=== PATIENT | male | born 1940 | race African-American/Black ===

== ENCOUNTER 2018-05-19 14:20 | Observation (INO) ==
--- NOTE | 2018-05-19 15:26 | ED ---
HPI General Chief Complaint: Altered Mental Status Stated Complaint: Medical Complaint Time Seen by Provider: 05/19/18 14:52 Source: patient and EMS Mode of arrival: EMS Limitations: altered mental status History of Present Illness HPI narrative: This patient is brought in by paramedics. He was brought here for evaluation of altered mental status. Patient is fairly confused and history is very limited. I am unclear on how long he has had this so duration is unknown. Severity is moderate. No alleviating factors. No exacerbating factors. He arrived hypertensive at 200/100 and came down to the 170s systolic on his own. Sugars 330, he is a diabetic. Denies fever or head injury or headache. Related Data Home Medications Medication Instructions Recorded Confirmed Unable to Obtain Home Meds 05/19/18 05/19/18 Allergies Allergy/AdvReac Type Severity Reaction Status Date / Time No Known Allergies Allergy Unverified 05/19/18 14:49 Review of Systems Except as stated in HPI: all other systems reviewed are negative [facility] [place] Medical History Medical History Diabetes (Acute) HTN (hypertension) (Acute) Surgical History Surgical History History of hip surgery (Acute) Social History Social History Substance History: No History of Abuse Second Hand Smoke Exposure: No Smoking Status: Never smoker How Often Do You Have a Drink Containing Alcohol: Never Recent Travel in [place] within the Last 8 Weeks: No Recent Out of Country Travel within the Last 8 Weeks: No Immunization History Tetanus Immunization: Unable to Assess Hx Influenza Vaccine This Season: Unable to Assess Exam Narrative Exam Narrative: GENERAL: Well-nourished, well-developed patient in no apparent distress. SKIN: Focused skin assessment reveals no rash and nodules. Skin is Warm and dry. HEAD: Atraumatic. Normocephalic. EYES: Pupils equal and round. No scleral icterus. No injection or drainage. ENT: No nasal bleeding or discharge. Mucous membranes pink and moist. NECK: Trachea midline. No JVD. No meningeal signs CARDIOVASCULAR: Regular rate and rhythm. No murmur appreciated. RESPIRATORY: No accessory muscle use. Clear to auscultation. Breath sounds equal bilaterally. GASTROINTESTINAL: Abdomen soft, non-tender, nondistended. Hepatic and splenic margins not palpable. MUSCULOSKELETAL: No obvious deformities. No clubbing. No cyanosis. No edema. NEUROLOGICAL: Awake and alert. No obvious cranial nerve deficits. Motor grossly within normal limits. Normal speech. PSYCHIATRIC: Appropriate mood and affect; insight and judgment poor. Course Initial Documented Vital Signs Temperature 98.3 F 05/19/18 14:49 Pulse Rate 83 05/19/18 14:49 Respiratory Rate 18 05/19/18 14:49 Blood Pressure 179/90 H 05/19/18 14:49 Pulse Oximetry 99 05/19/18 14:49 Last Documented Vital Signs Temperature 98.3 F 05/19/18 23:07 Pulse Rate 42 L 05/20/18 00:00 Respiratory Rate 16 05/19/18 23:07 Blood Pressure 180/90 H 05/19/18 23:07 Pulse Oximetry 98 05/20/18 00:00 Sign Out Sign Out Data: Patient Sign Out occurred on 05/19/18 at 17:09. Patient's care was discussed, and care was transferred from Andry David MD to Judah Garcia MD. Sign Out Comment: This case is checked out to the evening physician. Lab studies are all pending. Last updated by Andry David MD at 05/19/18 16:52 Post-Handoff Eval: Patient CARE assume from Dr. Jett at 1700, this is 78-year-old male with unclear past medical history presents emergency department for altered mental status. Per him the patient's niece whom he lives with was taken away on a [employer] act to [employer] act, the patient confused wandered to his neighbor 's house and neighbor called [phone] stating he was not acting normal. No further collateral history is available at this time, I have attempted to call his niece at home and became apparent to me that his niece is actually under the care of my nurse practitioner because she is here in the emergency department for evaluation as well. I have been able to speak with her and she is unable to provide any collateral history on this patient. Patient's 3 item recall is only one at 1 minute. He has no physical complaints, blood sugar was elevated, so his blood pressure. Review of his records so that he was here in January for diagnosis of ductal carcinoma. Unclear as to whether he is still taking his immune modulating therapy. Last time he was seen in the emergency department with several years ago. No history of dementia on the chart, initial workup otherwise negative. Medical Decision Making MDM Narrative Medical decision making narrative: IV placed and labs sent. Accu-Chek is 330 and I gave him 1 L saline IV regular insulin No acute neurologic deficit or meningeal signs Urinalysis Brain CT Differential Diagnosis Differential Diagnosis: Hypoglycemia, hyperglycemia, hypertensive urgency, UTI, dementia, delirium, hypertensive urgency, hyperglycemia. Medical Records Medical records reviewed: Yes I reviewed the patient's medical records. Lab Data Result diagrams: 05/19/18 14:45 05/19/18 18:35 Lab Results 05/19/18 05/19/18 05/19/18 Range/Units 14:45 14:45 16:27 WBC 9.0 (4.0-11.0) th/mm3 RBC 3.93 L (4.50-5.90) mil/mm3 Hgb 11.6 L (13.0-17.0) gm/dL Hct 36.1 L (39.0-51.0) % MCV 91.7 (80.0-100.0) fL MCH 29.4 (27.0-34.0) pg MCHC 32.1 (32.0-36.0) % RDW 18.0 H (11.6-17.2) % Plt Count 181 (150-450) th/mm3 MPV 7.9 (7.0-11.0) fL Neut % (Auto) 76.2 H (16.0-70.0) % Lymph % (Auto) 16.2 (9.0-44.0) % Hill % (Auto) 6.2 (0.0-8.0) % Eos % (Auto) 1.0 (0.0-4.0) % Baso % (Auto) 0.4 (0.0-2.0) % Neut # (Auto) 6.8 (1.8-7.7) th/mm3 Lymph # (Auto) 1.5 (1.0-4.8) th/mm3 Hill # (Auto) 0.6 (0.0-0.9) th/mm3 Eos # (Auto) 0.1 (0.0-0.4) th/mm3 Baso # (Auto) 0.0 (0.0-0.2) th/mm3 WBC Differential . Differential Comment Auto diff final Sodium (136-145) meq/L Potassium (3.5-5.1) meq/L Chloride (98-107) meq/L Carbon Dioxide (21.0-32.0) meq/L Anion Gap (5-15) meq/L BUN (7-18) mg/dL Creatinine (0.60-1.30) mg/dL Estimated GFR (>89) mL/min Random Glucose (74-106) mg/dL Calcium (8.5-10.1) mg/dL Total Bilirubin (0.2-1.0) mg/dL AST (15-37) U/L ALT (12-78) U/L Alkaline Phosphatase (45-117) U/L Total Protein (6.4-8.2) g/dL Albumin (3.4-5.0) g/dL TSH 1.620 (0.358-3.740) uIU/mL Urine Color Yellow (Yellw/Straw) Urine Clarity Hazy H (Clear) Urine pH 5.0 (5.0-8.5) Ur Specific [place] 1.014 (1.002-1.035) Urine Protein 500 or greater (Neg-Trace) mg/dL Urine Glucose (UA) 50 (Negative) mg/dL Urine Ketones Negative (Negative) mg/dL Urine Occult Blood Small H (Negative) Urine Nitrate Negative (Negative) Urine Bilirubin Negative (Negative) Urine Urobilinogen Less than 2 (Less than 2) mg/dL Ur Leukocyte Esterase Negative (Negative) Urine RBC 4 H (0-3) /hpf Urine WBC 1 (0-5) /hpf Hyaline Casts 4 (0-3) /lpf Urine Mucus Few H (Occasional) /lpf Micro UA Comment Culture not ind Urine Culture Comments Culture not ind 05/19/18 Range/Units 18:35 WBC (4.0-11.0) th/mm3 RBC (4.50-5.90) mil/mm3 Hgb (13.0-17.0) gm/dL Hct (39.0-51.0) % MCV (80.0-100.0) fL MCH (27.0-34.0) pg MCHC (32.0-36.0) % RDW (11.6-17.2) % Plt Count (150-450) th/mm3 MPV (7.0-11.0) fL Neut % (Auto) (16.0-70.0) % Lymph % (Auto) (9.0-44.0) % Hill % (Auto) (0.0-8.0) % Eos % (Auto) (0.0-4.0) % Baso % (Auto) (0.0-2.0) % Neut # (Auto) (1.8-7.7) th/mm3 Lymph # (Auto) (1.0-4.8) th/mm3 Hill # (Auto) (0.0-0.9) th/mm3 Eos # (Auto) (0.0-0.4) th/mm3 Baso # (Auto) (0.0-0.2) th/mm3 WBC Differential Differential Comment Sodium 146 H (136-145) meq/L Potassium 4.4 (3.5-5.1) meq/L Chloride 112 H (98-107) meq/L Carbon Dioxide 25.5 (21.0-32.0) meq/L Anion Gap 9 (5-15) meq/L BUN 34 H (7-18) mg/dL Creatinine 3.29 H (0.60-1.30) mg/dL Estimated GFR 22 L (>89) mL/min Random Glucose 178 H (74-106) mg/dL Calcium 9.3 (8.5-10.1) mg/dL Total Bilirubin 0.3 (0.2-1.0) mg/dL AST 13 L (15-37) U/L ALT 17 (12-78) U/L Alkaline Phosphatase 57 (45-117) U/L Total Protein 8.8 H (6.4-8.2) g/dL Albumin 2.9 L (3.4-5.0) g/dL TSH (0.358-3.740) uIU/mL Urine Color (Yellw/Straw) Urine Clarity (Clear) Urine pH (5.0-8.5) Ur Specific [place] (1.002-1.035) Urine Protein (Neg-Trace) mg/dL Urine Glucose (UA) (Negative) mg/dL Urine Ketones (Negative) mg/dL Urine Occult Blood (Negative) Urine Nitrate (Negative) Urine Bilirubin (Negative) Urine Urobilinogen (Less than 2) mg/dL Ur Leukocyte Esterase (Negative) Urine RBC (0-3) /hpf Urine WBC (0-5) /hpf Hyaline Casts (0-3) /lpf Urine Mucus (Occasional) /lpf Micro UA Comment Urine Culture Comments Imaging Data Radiologist's impression: Head CT 05/19/18 15:19 CONCLUSION: 1. Chronic changes with cortical and central atrophy as well as periventricular small vessel ischemic demyelination. 2. Nothing acute Discharge Plan Discharge Disposition Patient Disposition: 30 Still Patient Physicians Team ED Provider: Judah Garcia Primary Care Provider: German Farr Attending Provider: Heidi Mendes Discharge Interventions Interventions: ED Discharge Assessment Last Done: 05/19/18 23:12 Vital Signs Last Done: 05/19/18 20:42 Status ED Status: Left Department Discharge Information Discharge Date/Time: 05/19/18 23:12
--- NOTE | 2018-05-19 15:53 | CT ---
EXAM DATE: 05/19/2018 3:42 PM EDT AGE/SEX: 78 years / Male INDICATIONS: Weakness. Altered mental status. CLINICAL DATA: This is the patient's initial encounter. Patient reports that signs and symptoms have been present for 1 day and indicates a pain score of 0/10. MEDICAL/SURGICAL HISTORY: Hypertension. None. RADIATION DOSE: 45.32 CTDI (mGy) COMPARISON: No prior exams available for comparison. TECHNIQUE: CT of the head without contrast. Using automated exposure control and adjustment of the mA and/or kV according to patient size, radiation dose was kept as low as reasonably achievable to ob tain optimal diagnostic quality images. DICOM format image data is available electronically for revi ew and comparison. FINDINGS: Cerebrum: Cortical and central atrophy. Periventricular areas of diminished attenuation characterist ic of significant small vessel ischemic demyelination. Posterior Fossa: The cerebellum and brainstem are intact. The 4th ventricle is midline. The cerebe llopontine angle is unremarkable. Tomas cisterna magna, an anatomic variant. Extracranial: The visualized portion of the orbits is intact. Skull: The calvaria is intact. No evidence of skull fracture. CONCLUSION: 1. Chronic changes with cortical and central atrophy as well as periventricular small vessel ischemi c demyelination. 2. Nothing acute Electronically signed by: Pravin Carrillo MD 05/19/2018 3:51 PM EDT
[2018-05-19 16:50] LABS: Bilirubin,Urine Negative (Negative); Clarity,Urine Hazy (Clear); Color,Urine Yellow (Yellw/Straw); Glucose,Urine (UA) 50 mg/dL (Negative); Hyaline Casts,Urine 4 /lpf (0-3); Leukocyte Esterase,Urine Negative (Negative); Mucus,Urine Few /lpf (Occasional); Nitrite,Urine Negative (Negative); Specific Gravity,Urine 1.014 (1.002-1.035)
[2018-05-19 16:50] LABS: Baso % (Auto) 0.4 % (0.0-2.0); Eos # (Auto) 0.1 th/mm3 (0.0-0.4); Hematocrit 36.1 % (39.0-51.0); Hemoglobin 11.6 gm/dL (13.0-17.0); Lymph # (Auto) 1.5 th/mm3 (1.0-4.8); Lymph % (Auto) 16.2 % (9.0-44.0); Mean Corpuscular HGB Conc 32.1 % (32.0-36.0); Mean Corpuscular Hemoglobin 29.4 pg (27.0-34.0); Mean Corpuscular Volume 91.7 fL (80.0-100.0); Mean Platelet Volume 7.9 fL (7.0-11.0); Mono # (Auto) 0.6 th/mm3 (0.0-0.9); Mono % (Auto) 6.2 % (0.0-8.0); Neut # (Auto) 6.8 th/mm3 (1.8-7.7); Neut % (Auto) 76.2 % (16.0-70.0); Platelet Count 181 th/mm3 (150-450); Red Blood Count 3.93 mil/mm3 (4.50-5.90)
[2018-05-19 19:15] LABS: Albumin 2.9 g/dL (3.4-5.0); Anion Gap 9 meq/L (5-15); Aspartate Aminotransferase 13 U/L (15-37); Blood Urea Nitrogen 34 mg/dL (7-18); Calcium 9.3 mg/dL (8.5-10.1); Carbon Dioxide 25.5 meq/L (21.0-32.0); Chloride 112 meq/L (98-107); Glomerular Filtration Rate 22 mL/min (>89); Glucose,Random 178 mg/dL (74-106); Potassium 4.4 meq/L (3.5-5.1); Sodium 146 meq/L (136-145)
[2018-05-19 19:16] LABS: Alanine Aminotransferase 17 U/L (12-78)
[2018-05-19 19:18] LABS: Alkaline Phosphatase 57 U/L (45-117); Total Protein 8.8 g/dL (6.4-8.2)
[2018-05-19] MEDS ORDERED: hydrALAZINE HCl Inj 20 MG/ML Vial IV.PUSH ONE (19:22)
[2018-05-19] MEDS ORDERED: Temazepam 15 MG Capsule PO PRN (21:37)
[2018-05-19] MEDS ORDERED: Bisacodyl 10 MG Supp RECTAL PRN (21:37)
[2018-05-19] MEDS ORDERED: Dextrose 50% in Water 50 ML Vial IV.PUSH PRN (21:39)
--- NOTE | 2018-05-19 21:40 | P.HPIM ---
History of Present Illness Primary Care Physician: German Farr History of Present Illness: This is a 78-year-old male with PMH of HTN, DM, CKD (Stage III) and Breast CA s/ p Left Mastectomy who was brought to the ER by EMS for AMS. Pt poor historian, but tells me his niece normally takes care of him, states niece didn't come home last night and pt had gone to neighbor's house today to look for her, states neighbor called EMS because he was concerned he couldn't take care of himself. On exam, pt is confused but able to answer some questions. Tells me it's 2018, knows he's at [employer], cannot recall name of President but tells me "he's ugly". Pt without complaints at this time. On arrival, BP 199/98, HR 58 , O2 sat 99% on RA, Afebrile. CBC essentially unremarkable. Na 146. Creatinine 3.29, previously 2.95 on 02/17/2018. UA negative for UTI. CT Head with no acute findings. S/p Hydralazine 10mg IV and Clonidine 0.2mg po in ER w / improvement, repeat BP 150's systolic. - Diagnosis (1) Encephalopathy (2) HTN (hypertension) (3) DM (diabetes mellitus) (4) RALEIGH (acute kidney injury) (5) Breast cancer in male Review of Systems All other systems reviewed negative except as stated in HPI PMFSH - History History Provided By: Patient - Medical History Medical History: Medical History (Last Updated 05/19/18 @ 14:52 by [employer]) Diabetes HTN (hypertension) - Surgical History Surgical History: Surgical History (Last Updated 05/19/18 @ 14:52 by [employer]) History of hip surgery - Tobacco History Second Hand Smoke Exposure: No Tobacco Use In Past 30 Days: No Smoking Status: Never smoker - Alcohol History How Often Do You Have a Drink Containing Alcohol: Never - Substance Use History Substance History: No History of Abuse - Travel History Recent Travel in the [facility] Within the Last 8 Weeks: No Recent Travel Out of the Country Within the Last 8 Weeks: No - Immunization History Tetanus Immunization: Unable to Assess Hx Influenza Vaccine This Season: Unable to Assess Medications and Allergies Active Medications: Active Medications Sodium Chloride (Ns Flush) 2 ml IV.FLUSH PRN PRN PRN Reason: FLUSH AFTER USING IV ACCESS Last Admin: 05/19/18 16:25 Dose: 2 ml Allergies Allergy/AdvReac Type Severity Reaction Status Date / Time No Known Allergies Allergy Unverified 05/19/18 14:49 Home Medications Medication Instructions Recorded Confirmed Type Unable to Obtain Home Meds 05/19/18 05/19/18 History Exam Vital signs: Vital Signs 05/19/18 14:49 05/19/18 14:53 05/19/18 15:20 Temperature 98.3 F Pulse Rate 83 59 L Respiratory Rate 18 18 Blood Pressure 179/90 H 184/138 H Pulse Oximetry 99 96 99 05/19/18 16:53 05/19/18 17:00 05/19/18 18:00 Temperature Pulse Rate 54 L 54 L 56 L Respiratory Rate 16 19 18 Blood Pressure 195/95 H 205/91 H 217/98 H Pulse Oximetry 99 99 05/19/18 20:42 Temperature Pulse Rate Respiratory Rate 22 Blood Pressure Pulse Oximetry Intake & Output 05/19/18 05/19/18 05/20/18 06:59 18:59 06:59 Weight 92.079 kg Narrative: PE: GENERAL: Very pleasant elderly black male in no acute distress. HEENT: PERRLA, EOMI. No scleral icterus or conjunctival pallor. No lid lag or facial droop. CARDIOVASCULAR: Regular rate and rhythm. No obvious murmurs to auscultation. No chest tenderness to palpation. RESPIRATORY: No obvious rhonchi or wheezing. Clear to auscultation. Breath sounds equal bilaterally. GASTROINTESTINAL: Abdomen soft, non-tender, nondistended. BS normal. MUSCULOSKELETAL: Extremities without clubbing, cyanosis, or edema. No obvious deformities. NEUROLOGICAL: Awake, alert and oriented x4, but confused, poor historian. No focal neurologic deficits. Moving both upper and lower extremities spontaneously. Results - Labs CBC & Chem 7: 05/19/18 14:45 05/19/18 18:35 Labs: Short CBC 05/19/18 Range/Units 14:45 WBC 9.0 (4.0-11.0) th/mm3 Hgb 11.6 L (13.0-17.0) gm/dL Hct 36.1 L (39.0-51.0) % Plt Count 181 (150-450) th/mm3 BMP 05/19/18 18:35 Sodium 146 H Potassium 4.4 Chloride 112 H Carbon Dioxide 25.5 BUN 34 H Creatinine 3.29 H Calcium 9.3 Liver Function 05/19/18 Range/Units 18:35 Total Bilirubin 0.3 (0.2-1.0) mg/dL AST 13 L (15-37) U/L ALT 17 (12-78) U/L Alkaline Phosphatase 57 (45-117) U/L Albumin 2.9 L (3.4-5.0) g/dL Urine 05/19/18 Range/Units 16:27 Urine Color Yellow (Yellw/Straw) Urine Clarity Hazy H (Clear) Urine pH 5.0 (5.0-8.5) Ur Specific [place] 1.014 (1.002-1.035) Urine Protein 500 or greater (Neg-Trace) mg/dL Urine Glucose (UA) 50 (Negative) mg/dL - Imaging Impressions Head CT 05/19/18 15:19 CONCLUSION: 1. Chronic changes with cortical and central atrophy as well as periventricular small vessel ischemic demyelination. 2. Nothing acute Caprini VTE Risk Assessment Caprini VTE Risk Assessment: No/Low Risk (score <= 1) Caprini Risk Assessment Model: Point Value = 1 Point Value = 2 Point Value = 3 Point Value = 5 Age 41-60 Minor surgery BMI > 25 kg/m2 Swollen legs Varicose veins or History of unexplained or recurrent spontaneous Oral contraceptives or hormone replacement Sepsis (< 1 month) Serious lung disease, including pneumonia (< 1 month) Abnormal pulmonary function Acute myocardial infarction Congestive heart failure (< 1 month) History of inflammatory bowel disease Medical patient at bed rest Age 61-74 Arthroscopic surgery Major open surgery (> 45 min) Laparoscopic surgery (> 45 min) Malignancy Confined to bed (> 72 hours) Immobilizing plaster cast Central venous access Age >= 75 History of VTE Family history of VTE Factor V Leiden Prothrombin [id number] Lupus anticoagulant Anticardiolipin antibodies Elevated serum homocysteine Heparin-induced thrombocytopenia Other congenital or acquired thrombophilia Stroke (< 1 month) Elective arthroplasty Hip, pelvis, or leg fracture Acute spinal cord injury (< 1 month) Prophylaxis Regimen: Total Risk Factor Score Risk Level Prophylaxis Regimen 0-1 Low Early ambulation 2 Moderate Order ONE of the following: *Sequential Compression Device (SCD) *Heparin 5000 units SQ BID 3-4 Higher Order ONE of the following medications: *Heparin 5000 units SQ TID *Enoxaparin/Lovenox 40 mg SQ daily (WT < 150 kg, CrCl > 30 mL/min) *Enoxaparin/Lovenox 30 mg SQ daily (WT < 150 kg, CrCl > 10-29 mL/min) *Enoxaparin/Lovenox 30 mg SQ BID (WT < 150 kg, CrCl > 30 mL/min) AND/OR *Sequential Compression Device (SCD) 5 or more Highest Order ONE of the following medications: *Heparin 5000 units SQ TID (Preferred with Epidurals) *Enoxaparin/Lovenox 40 mg SQ daily (WT < 150 kg, CrCl > 30 mL/min) *Enoxaparin/Lovenox 30 mg SQ daily (WT < 150 kg, CrCl > 10-29 mL/min) *Enoxaparin/Lovenox 30 mg SQ BID (WT < 150 kg, CrCl > 30 mL/min) AND *Sequential Compression Device (SCD) Assessment and Plan - Assessment (1) Encephalopathy Code(s): G93.40 - Encephalopathy, unspecified Status: Acute (2) HTN (hypertension) Code(s): I10 - Essential (primary) hypertension Status: Acute (3) DM (diabetes mellitus) Code(s): E11.9 - Type 2 diabetes mellitus without complications Status: Acute (4) RALEIGH (acute kidney injury) Code(s): N17.9 - Acute kidney failure, unspecified Status: Acute (5) Breast cancer in male Code(s): C50.929 - Malignant neoplasm of unspecified site of unspecified male breast Status: Acute - Plan A/P: 1. Encephalopathy: baseline largely unknown, AA&Ox4 however confused, poor historian. CT Head w/ no acute findings. Niece is picker operator, however niece is currently admitted for BA/DKA and pt unable to care for self. Admit for observation, possible Psych eval as needed. PT for eval/tx, Case Management for possible placement. 2. HTN: Uncontrolled. BP 190's systolic on arrival, s/p Hydralazine 10mg IV x1 and Clonidine 0.2mg PO, BP currently 150's, HR 58, caution w/ bradycardia, hold Metoprolol/Clonidine. Monitor BP, antihypertensives as needed for BP >180 3. RALEIGH: Creatinine 3.29, previously 2.95 on 02/17/18, monitor I/O, IVF for hydration, repeat labs in am. 4. DM: Sliding scale w/ Accu-Cheks 5. DVT Prophylaxis: SCD/Teds 6. Social work for d/c planning as needed 7. Case discussed w/ ER physician at length, labs/records/imaging reviewed by me.
[2018-05-19] MEDS: Sod Chloride 0.9% Inj 1,000 ML IV.CONT SCH (21:44)
[2018-05-20 07:52] LABS: Baso % (Auto) 0.3 % (0.0-2.0); Eos # (Auto) 0.1 th/mm3 (0.0-0.4); Eos % (Auto) 1.6 % (0.0-4.0); Hematocrit 32.9 % (39.0-51.0); Hemoglobin 10.7 gm/dL (13.0-17.0); Lymph # (Auto) 2.1 th/mm3 (1.0-4.8); Lymph % (Auto) 25.2 % (9.0-44.0); Mean Corpuscular HGB Conc 32.5 % (32.0-36.0); Mean Corpuscular Hemoglobin 29.8 pg (27.0-34.0); Mean Corpuscular Volume 91.9 fL (80.0-100.0); Mono # (Auto) 0.5 th/mm3 (0.0-0.9); Mono % (Auto) 6.7 % (0.0-8.0); Neut # (Auto) 5.4 th/mm3 (1.8-7.7); Neut % (Auto) 66.2 % (16.0-70.0); Platelet Count 180 th/mm3 (150-450); Red Blood Count 3.58 mil/mm3 (4.50-5.90); Red Cell Distribution Width 17.7 % (11.6-17.2); White Blood Count 8.2 th/mm3 (4.0-11.0)
[2018-05-20 08:14] LABS: Albumin 2.9 g/dL (3.4-5.0); Anion Gap 8 meq/L (5-15); Blood Urea Nitrogen 39 mg/dL (7-18); Calcium 8.9 mg/dL (8.5-10.1); Carbon Dioxide 26.1 meq/L (21.0-32.0); Chloride 109 meq/L (98-107); Glucose,Random 172 mg/dL (74-106); Potassium 3.7 meq/L (3.5-5.1); Sodium 143 meq/L (136-145)
[2018-05-20 08:17] LABS: Alanine Aminotransferase 15 U/L (12-78); Alkaline Phosphatase 53 U/L (45-117); Aspartate Aminotransferase 10 U/L (15-37); Glomerular Filtration Rate 22 mL/min (>89); Total Protein 8.2 g/dL (6.4-8.2)
[2018-05-20] MEDS: Senna/Docusate Sodium 8.6/50 MG Tablet PO SCH ×2 (08:59→21:54)
[2018-05-20] MEDS: Insulin NovoLOG Aspart Correctional Sugar Inj SQ SCH ×4 (09:00→21:00)
--- NOTE | 2018-05-20 15:19 | ECG ---
Date Performed: 05/19/2018 Time Performed: 16:59:15 PTAGE: 78 years EKG: Sinus rhythm significant baseline artifact percluding further interpretation. There is some concern for complete heart block though this cannot be differentiated given the amount of artifact. ABNORMAL ECG PREVIOUS TRACING : 03/14/2015 15.51 DOCTOR: Elinor Vences Interpretating Date/Time 05/20/2018 15:17:37
--- NOTE | 2018-05-20 15:21 | P.PN ---
Subjective Interval history: Follow-up visit HTN, DM 2, CKD stage III, altered mental status. Patient seen and examined today. Awake and alert. Patient states that there was a mistake about his hospitalization. States his niece normally takes care of him, states "niece didn't come home last night and pt had gone to neighbor's house today to look for her, states neighbor called EMS because he was concerned he couldn't take care of himself." Patient started crying. He was consistent with his story from last night. States that it is 2018, he knows he is at [facility], he knows that the president is Nav[place] tells me he does not like him. States he really wants to go home. Denies pain and discomfort. Denies SOB/ dyspnea. Denies chest pain, palpitations, headaches, dizziness. Denies fevers, chills, n/v/d. Denies dysuria. Upon walking out the door post exam, patient started to ramble about he is not -[place] and that he has proved that he is 6 of and he goes on rambling about money and people after him. Reoriented. Reassured. Physical Exam Vital signs: Vital Signs 05/19/18 16:53 05/19/18 17:00 05/19/18 18:00 Temperature Pulse Rate 54 L 54 L 56 L Respiratory Rate 16 19 18 Blood Pressure 195/95 H 205/91 H 217/98 H Pulse Oximetry 99 99 05/19/18 20:42 05/19/18 21:41 05/19/18 22:11 Temperature Pulse Rate 58 L Respiratory Rate 22 18 Blood Pressure 199/98 H 152/89 H Pulse Oximetry 05/19/18 22:36 05/19/18 23:07 05/20/18 00:00 Temperature 98.3 F Pulse Rate 38 L 42 L Respiratory Rate 16 Blood Pressure 180/90 H Pulse Oximetry 99 94 L 98 05/20/18 03:59 05/20/18 08:00 05/20/18 08:03 Temperature 97.6 F 98.6 F Pulse Rate 65 89 Respiratory Rate 16 18 Blood Pressure 179/85 H 138/64 Pulse Oximetry 98 95 100 05/20/18 12:00 Temperature 98.1 F Pulse Rate 54 L Respiratory Rate 16 Blood Pressure 135/63 Pulse Oximetry 95 Intake & Output 05/19/18 05/20/18 05/20/18 18:59 06:59 18:59 Intake Total 840 / 840 Balance 840 / 840 Weight 92.079 kg Intake: Oral 240 / 240 Other 600 / 600 Other: # Voids 3 Narrative: GENERAL: This is a well-nourished, well-developed patient, in no apparent distress. SKIN: Warm and dry. HEENT: Normocephalic. Left eye erythema. Nose without bleeding. Airway patent. NECK: Trachea midline. CARDIOVASCULAR: Regular rate and rhythm without murmurs, gallops, or rubs. RESPIRATORY: Diminished bases. No wheezes, rales, or rhonchi. GASTROINTESTINAL: Abdomen soft, non-tender, nondistended. Bowel Sounds normoactive x4. MUSCULOSKELETAL: Extremities without clubbing, cyanosis. Bilateral lower extremity +1 pitting NEUROLOGICAL: Awake and alert. Oriented to place, person. No focal neuro deficit. Moves all extremities. Normal speech. Results - Labs CBC & Chem 7: 05/20/18 06:50 05/20/18 06:50 Laboratory Results - last 24 hr 05/19/18 05/19/18 05/19/18 14:45 14:45 16:27 WBC 9.0 RBC 3.93 L Hgb 11.6 L Hct 36.1 L MCV 91.7 MCH 29.4 MCHC 32.1 RDW 18.0 H Plt Count 181 MPV 7.9 Neut % (Auto) 76.2 H Lymph % (Auto) 16.2 [place] % (Auto) 6.2 Eos % (Auto) 1.0 Baso % (Auto) 0.4 Neut # (Auto) 6.8 Lymph # (Auto) 1.5 [place] # (Auto) 0.6 Eos # (Auto) 0.1 Baso # (Auto) 0.0 WBC Differential . Differential Comment Auto diff final Sodium Potassium Chloride Carbon Dioxide Anion Gap BUN Creatinine Estimated GFR POC Glucose Random Glucose Calcium Total Bilirubin AST ALT Alkaline Phosphatase Total Protein Albumin TSH 1.620 Urine Color Yellow Urine Clarity Hazy H Urine pH 5.0 Ur Specific [place] 1.014 Urine Protein 500 or greater Urine Glucose (UA) 50 Urine Ketones Negative Urine Occult Blood Small H Urine Nitrate Negative Urine Bilirubin Negative Urine Urobilinogen Less than 2 Ur Leukocyte Esterase Negative Urine RBC 4 H Urine WBC 1 Hyaline Casts 4 Urine Mucus Few H Micro UA Comment Culture not ind Urine Culture Comments Culture not ind 05/19/18 05/20/18 05/20/18 18:35 06:50 06:50 WBC 8.2 RBC 3.58 L Hgb 10.7 L Hct 32.9 L MCV 91.9 MCH 29.8 MCHC 32.5 RDW 17.7 H Plt Count 180 MPV 8.0 Neut % (Auto) 66.2 Lymph % (Auto) 25.2 [place] % (Auto) 6.7 Eos % (Auto) 1.6 Baso % (Auto) 0.3 Neut # (Auto) 5.4 Lymph # (Auto) 2.1 [place] # (Auto) 0.5 Eos # (Auto) 0.1 Baso # (Auto) 0.0 WBC Differential . Differential Comment Auto diff final Sodium 146 H 143 Potassium 4.4 3.7 Chloride 112 H 109 H Carbon Dioxide 25.5 26.1 Anion Gap 9 8 BUN 34 H 39 H Creatinine 3.29 H 3.30 H Estimated GFR 22 L 22 L POC Glucose Random Glucose 178 H 172 H Calcium 9.3 8.9 Total Bilirubin 0.3 0.3 AST 13 L 10 L ALT 17 15 Alkaline Phosphatase 57 53 Total Protein 8.8 H 8.2 D Albumin 2.9 L 2.9 L TSH Urine Color Urine Clarity Urine pH Ur Specific [place] Urine Protein Urine Glucose (UA) Urine Ketones Urine Occult Blood Urine Nitrate Urine Bilirubin Urine Urobilinogen Ur Leukocyte Esterase Urine RBC Urine WBC Hyaline Casts Urine Mucus Micro UA Comment Urine Culture Comments 05/20/18 05/20/18 08:52 12:31 WBC RBC Hgb Hct MCV MCH MCHC RDW Plt Count MPV Neut % (Auto) Lymph % (Auto) [place] % (Auto) Eos % (Auto) Baso % (Auto) Neut # (Auto) Lymph # (Auto) [place] # (Auto) Eos # (Auto) Baso # (Auto) WBC Differential Differential Comment Sodium Potassium Chloride Carbon Dioxide Anion Gap BUN Creatinine Estimated GFR POC Glucose 198 H 228 H Random Glucose Calcium Total Bilirubin AST ALT Alkaline Phosphatase Total Protein Albumin TSH Urine Color Urine Clarity Urine pH Ur Specific [place] Urine Protein Urine Glucose (UA) Urine Ketones Urine Occult Blood Urine Nitrate Urine Bilirubin Urine Urobilinogen Ur Leukocyte Esterase Urine RBC Urine WBC Hyaline Casts Urine Mucus Micro UA Comment Urine Culture Comments - Imaging Impressions Head CT 05/19/18 15:19 CONCLUSION: 1. Chronic changes with cortical and central atrophy as well as periventricular small vessel ischemic demyelination. 2. Nothing acute Assessment and Plan - Assessment (1) Encephalopathy Code(s): G93.40 - Encephalopathy, unspecified Status: Acute (2) HTN (hypertension) Code(s): I10 - Essential (primary) hypertension Status: Acute (3) DM (diabetes mellitus) Code(s): E11.9 - Type 2 diabetes mellitus without complications Status: Acute (4) RALEIGH (acute kidney injury) Code(s): N17.9 - Acute kidney failure, unspecified Status: Acute (5) Breast cancer in male Code(s): C50.929 - Malignant neoplasm of unspecified site of unspecified male breast Status: Acute - Plan This is a 78-year-old male with PMH of HTN, DM, CKD (Stage III) and Breast CA s/ p Left Mastectomy who was brought to the ER by EMS for AMS. Encephalopathy Paranoia -baseline largely unknown, AA&Ox4 however confused, poor historian. -CT Head w/ no acute findings. Niece is drill press set up operator radial, however niece is currently admitted for BA/DKA and pt unable to care for self. -Psych eval as patient may have paranoia component. -PT for eval/tx, Case Management for possible placement. HTN: Uncontrolled. BP 190's systolic on arrival, s/p Hydralazine 10mg IV x1 and Clonidine 0.2mg PO in the ED Bradycardia 40-50 -hold Metoprolol/Clonidine. -Start Norvasc, hydralazine -PRN hydralazine -Monitor BP RALEIGH: Creatinine 3.29, previously 2.95 on 02/17/18, -monitor I/O, IVF for hydration -repeat labs in am. Left eye Conjunctivitis Left eye, erythema -States he had cataract sx done in the left eye and has eyedrops for it -Will start eyedrops/ointment, erythromycin DM: Sliding scale w/ Accu-Cheks DVT Prophylaxis: SCD/Teds Code Status: Full Code Discussed Condition With: Patient, nursing Discharge Planning: Plan to DC home
[2018-05-20] MEDS ORDERED: amLODIPine 10 MG Tablet PO SCH (15:30)
[2018-05-20] MEDS ORDERED: hydrALAZINE 10 MG Tablet PO PRN (15:45)
[2018-05-20] MEDS: Sod Chloride 0.9% Inj 1,000 ML IV.CONT SCH (16:08)
--- NOTE | 2018-05-20 16:35 | P.DCO ---
- Physical Therapy Order: Evaluate and treat - Home Health Nursing Order: Medical education, Signs/symptoms of disease process, Medication education-adverse effect - Certification I have seen patient Arie Macedo on 05/20/18. My clinical findings support the need for the requested home health care services because: Limited mobility due to disease progression, Limited ability to care for self, Impaired cognition/judgement I certify that my clinical findings support that this patient is homebound because: Impaired cognitive ability/safety, Unsteady gait/balance
[2018-05-20] MEDS: Erythromycin 0.5% Opth Oint 3.5 GM Tube LEFT EYE SCH (18:23)
[2018-05-20] MEDS ORDERED: Insulin Detemir Inj 1,000 UNIT/10 ML Vial SQ SCH (21:00)
[2018-05-20] MEDS: hydrALAZINE 25 MG Tablet PO SCH (21:52)
[2018-05-21] MEDS: Erythromycin 0.5% Opth Oint 3.5 GM Tube LEFT EYE SCH ×5 (06:24→20:21)
[2018-05-21 07:42] LABS: Baso % (Auto) 0.4 % (0.0-2.0); Eos # (Auto) 0.1 th/mm3 (0.0-0.4); Eos % (Auto) 1.6 % (0.0-4.0); Hematocrit 33.2 % (39.0-51.0); Hemoglobin 10.7 gm/dL (13.0-17.0); Lymph # (Auto) 1.6 th/mm3 (1.0-4.8); Lymph % (Auto) 17.9 % (9.0-44.0); Mean Corpuscular HGB Conc 32.3 % (32.0-36.0); Mean Corpuscular Hemoglobin 29.6 pg (27.0-34.0); Mean Corpuscular Volume 91.4 fL (80.0-100.0); Mean Platelet Volume 8.4 fL (7.0-11.0); Mono # (Auto) 0.6 th/mm3 (0.0-0.9); Mono % (Auto) 6.9 % (0.0-8.0); Neut # (Auto) 6.4 th/mm3 (1.8-7.7); Neut % (Auto) 73.2 % (16.0-70.0); Platelet Count 182 th/mm3 (150-450); Red Blood Count 3.63 mil/mm3 (4.50-5.90); Red Cell Distribution Width 17.8 % (11.6-17.2); White Blood Count 8.8 th/mm3 (4.0-11.0)
[2018-05-21] MEDS: Insulin NovoLOG Aspart Correctional Sugar Inj SQ SCH ×4 (08:00→21:22)
[2018-05-21 08:06] LABS: Calcium 8.7 mg/dL (8.5-10.1); Carbon Dioxide 22.3 meq/L (21.0-32.0); Potassium 3.5 meq/L (3.5-5.1)
[2018-05-21] MEDS: hydrALAZINE 25 MG Tablet PO SCH ×2 (09:12→20:21)
[2018-05-21] MEDS: Senna/Docusate Sodium 8.6/50 MG Tablet PO SCH ×2 (09:12→20:21)
[2018-05-21] MEDS: amLODIPine 5 MG Tablet PO SCH (09:12)
[2018-05-21] MEDS: Sod Chloride 0.9% Inj 1,000 ML IV.CONT SCH ×3 (09:13→18:41)
--- NOTE | 2018-05-21 09:30 | P.PN ---
Subjective Interval history: Follow-up visit HTN, DM 2, CKD stage III, altered mental status. Patient seen and examined today. Awake and alert. Patient states he is doing okay. States he is able to take care of himself at home. States he is able to cook food for himself. Patient knows the year, month, president, place where he is at in which city or town he is at. States he lives in [facility] in [place]. When asked who is going to come and get him if he get discharged, he started crying and saying he has nieces who are twins and one of them is "doing whatever she wants, this has saddened him." Otherwise, denies pain and discomfort. Denies SOB/ dyspnea. Denies chest pain, palpitations, headaches, dizziness. Denies fevers, chills, n/v/d. Denies dysuria. Physical Exam Vital signs: Vital Signs 05/20/18 12:00 05/20/18 16:00 05/21/18 00:00 Temperature 98.1 F 98.0 F 98.1 F Pulse Rate 54 L 76 39 L Respiratory Rate 16 18 17 Blood Pressure 135/63 159/82 H 171/76 H Pulse Oximetry 95 97 95 05/21/18 03:49 05/21/18 07:57 05/21/18 08:08 Temperature 98.7 F 97.8 F Pulse Rate 83 65 73 Respiratory Rate 16 18 Blood Pressure 173/85 H 190/84 H Pulse Oximetry 96 99 Intake & Output 05/20/18 05/21/18 05/21/18 18:59 06:59 18:59 Intake Total 1000 / 1000 1000 / 1000 Output Total 800 / 800 300 / 300 Balance 200 / 200 700 / 700 Intake: IV 1000 / 1000 1000 / 1000 NS Inj 1,000 ML @ 100 mls/hr IV 1000 / 1000 1000 / 1000 .CONT .Q10H JUDY Rx#:[id number] Output: Urine 800 / 800 300 / 300 Other: # Voids 1 Narrative: GENERAL: This is a well-nourished, well-developed patient, in no apparent distress. SKIN: Warm and dry. HEENT: Normocephalic. Left eye erythema. Nose without bleeding. Airway patent. NECK: Trachea midline. CARDIOVASCULAR: Regular rate and rhythm without murmurs, gallops, or rubs. RESPIRATORY: Diminished bases. No wheezes, rales, or rhonchi. GASTROINTESTINAL: Abdomen soft, non-tender, nondistended. Bowel Sounds normoactive x4. MUSCULOSKELETAL: Extremities without clubbing, cyanosis. Bilateral lower extremity +1 pitting NEUROLOGICAL: Awake and alert. Oriented to place, person. No focal neuro deficit. Moves all extremities. Normal speech. Results - Labs CBC & Chem 7: 05/21/18 06:10 05/21/18 06:10 Laboratory Results - last 24 hr 05/20/18 05/20/18 05/20/18 06:50 12:31 16:42 WBC RBC Hgb Hct MCV MCH MCHC RDW Plt Count MPV Neut % (Auto) Lymph % (Auto) [place] % (Auto) Eos % (Auto) Baso % (Auto) Neut # (Auto) Lymph # (Auto) [place] # (Auto) Eos # (Auto) Baso # (Auto) WBC Differential Differential Comment Sodium Potassium Chloride Carbon Dioxide Anion Gap BUN Creatinine Estimated GFR POC Glucose 228 H 172 H Random Glucose Hemoglobin A1c 8.0 H Calcium 05/20/18 05/21/18 05/21/18 21:20 06:10 06:10 WBC 8.8 RBC 3.63 L Hgb 10.7 L Hct 33.2 L MCV 91.4 MCH 29.6 MCHC 32.3 RDW 17.8 H Plt Count 182 MPV 8.4 Neut % (Auto) 73.2 H Lymph % (Auto) 17.9 [place] % (Auto) 6.9 Eos % (Auto) 1.6 Baso % (Auto) 0.4 Neut # (Auto) 6.4 Lymph # (Auto) 1.6 [place] # (Auto) 0.6 Eos # (Auto) 0.1 Baso # (Auto) 0.0 WBC Differential . Differential Comment Auto diff final Sodium 141 Potassium 3.5 Chloride 109 H Carbon Dioxide 22.3 Anion Gap 10 BUN 43 H Creatinine 2.94 H Estimated GFR 25 L POC Glucose 189 H Random Glucose 117 H Hemoglobin A1c Calcium 8.7 05/21/18 08:32 WBC RBC Hgb Hct MCV MCH MCHC RDW Plt Count MPV Neut % (Auto) Lymph % (Auto) [place] % (Auto) Eos % (Auto) Baso % (Auto) Neut # (Auto) Lymph # (Auto) [place] # (Auto) Eos # (Auto) Baso # (Auto) WBC Differential Differential Comment Sodium Potassium Chloride Carbon Dioxide Anion Gap BUN Creatinine Estimated GFR POC Glucose 125 H Random Glucose Hemoglobin A1c Calcium - Procedures None Assessment and Plan - Assessment (1) Encephalopathy Code(s): G93.40 - Encephalopathy, unspecified Status: Acute (2) HTN (hypertension) Code(s): I10 - Essential (primary) hypertension Status: Acute (3) DM (diabetes mellitus) Code(s): E11.9 - Type 2 diabetes mellitus without complications Status: Acute (4) RALEIGH (acute kidney injury) Code(s): N17.9 - Acute kidney failure, unspecified Status: Acute (5) Breast cancer in male Code(s): C50.929 - Malignant neoplasm of unspecified site of unspecified male breast Status: Acute - Plan This is a 78-year-old male with PMH of HTN, DM, CKD (Stage III) and Breast CA s/ p Left Mastectomy who was brought to the ER by EMS for AMS. Encephalopathy Paranoia -baseline largely unknown, AA&Ox4 however confused, poor historian. -CT Head w/ no acute findings. Niece is chemical laboratory scientist, however niece is currently admitted for BA/DKA and pt unable to care for self. -Psych eval as patient may have paranoia component. -PT for eval/tx -Improving mental status HTN: Uncontrolled. BP 190's systolic on arrival, s/p Hydralazine 10mg IV x1 and Clonidine 0.2mg PO in the ED Bradycardia 40-50 -hold Metoprolol/Clonidine, secondary to bradycardia -Start Norvasc, hydralazine. Adjust dose as needed -PRN hydralazine -Monitor BP Arrythmia -7 beats Vtach, spontaneous return to SR -Monitor labs -Check Magnesium, EKG -Recheck labs in am RALEIGH: Creatinine 3.29, previously 2.95 on 02/17/18, -monitor I/O, IVF for hydration -repeat labs in am. Left eye Conjunctivitis Left eye, erythema -States he had cataract sx done in the left eye and has eyedrops for it -eyedrops/ointment, erythromycin DM 2 -Sliding scale w/ Accu-Cheks -HgA1C 8.7 -Start Levemir 5, HS, increase 10 unitsBID DVT Prophylaxis: SCD/Teds Code Status: Full Code Discussed Condition With: Patient, nursing, Dr. Baeza, CM Discharge Planning: Plan to DC home
--- NOTE | 2018-05-21 15:45 | P.CONPSY ---
Provisional Diagnosis Admission Date: May 19, 2018 21:36 [place] I.: 1. Cognitive deficits Suspect underlying dementing illness Rule out delirium [place] II.: Deferred History of Present Illness Service: Psychiatry Consult date: 05/21/18 Requesting Physician: Linda Feliz Reason for Consult: [facility] Primary Care Provider: German Farr History of Present Illness: Mr. Macedo is a 78 year-old male with no known past psychiatric history who was brought into the ED after he was found wandering. ER provider documentation indicates that the patient may reside with his niece who may have herself been Roberts Acted. Patient is presently in observation in the CDU secondary to encephalopathy, hypertension and RALEIGH. Reviewing the electronic medical record, I see no previous psychiatric contact within our system. Patient seen and examined. Chart reviewed. Case discussed with KYE Feliz. She wonders about some sort of underlying psychiatric illness because patient at one point articulated belief that someone was after him and also made odd comments regarding his ancestry. No behavioral issues noted. On my exam, patient presents as somewhat confused. MMSE is 18/30 with primary deficits in recall and WORLD backward. Patient does indeed ramble at some length about his heritage but points me to a paper in his bag, which is from a [employer]. This paper indicates that patient has heritage, and patient appears to be quite proud of this fact. This does not appear to be psychotic in context. Likewise, I can elicit no paranoia, no ideas of reference , no thought insertion or withdrawal or other delusional material at this time. He denies any suicidal or homicidal ideation or plan. He denies any audiovisual hallucinations. I can elicit no depressive or hypomanic/manic symptoms. He reports that he is sleeping and eating well. The remainder of the psychiatric ROS is negative. No acute physical complaints. Past psychiatric history: Patient is likely a somewhat unreliable historian. He denies a history of psychiatric diagnosis. He denies a history of inpatient or outpatient psychiatric treatment. He denies a history of suicide attempts. Family history: The patient reports that his niece has some sort of mental illness and indicates that she indeed is presently hospitalized for psychiatric issues. Chemical dependency history: Patient denies any abuse of drugs or alcohol. Social history: The patient reports that his niece resides with him. He has 2 years of college. 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 He denies any history. Denies any legal history. He reports that he keeps 3 rifles at home but has never used them. No reported suicide plan involving a gun. He denies any history of abuse or mistreatment. He is a [employer]. Patient is unable to provide any additional collateral information sources, and mid-level provider indicates to me that efforts have been made to reach out to the patient's niece whose number is listed in the EMR without success. Review of Systems All other systems reviewed negative except as stated in HPI (Limitation: Poor historian) [facility] - History History Provided By: Patient - Medical History Medical History: Medical History (Last Reviewed 05/20/18 @ 07:46 by William Templeton) Diabetes HTN (hypertension) - Surgical History Surgical History: Surgical History (Last Reviewed 05/20/18 @ 07:46 by William Templeton) History of hip surgery - Tobacco History Second Hand Smoke Exposure: No Tobacco Use In Past 30 Days: No Smoking Status: Never smoker - Alcohol History How Often Do You Have a Drink Containing Alcohol: Never - Substance Use History Substance History: No History of Abuse - Travel History Recent Travel in the [place] Within the Last 8 Weeks: No Recent Travel Out of the Country Within the Last 8 Weeks: No - Immunization History Tetanus Immunization: Unable to Assess Hx Influenza Vaccine This Season: Unable to Assess Medications and Allergies Active Medications: Active Medications Al Hydroxide/Mg Hydroxide (Milk Of Corrina Erickson) 30 ml PO Q12H PRN PRN Reason: Mild Constipation Amlodipine Besylate (Norvasc) 5 mg PO DAILY [facility] Last Admin: 05/21/18 09:12 Dose: 5 mg Bisacodyl (Dulcolax Supp) 10 mg RECTAL DAILY PRN PRN Reason: SEVERE CONSITIPATION Dextrose (D50w Vial) 50 ml IV.PUSH UNSCH PRN PRN Reason: PER HYPOGLYCEMIA PROTOCOL Erythromycin (Ilotycin 0.5% Opth Oint) 1 applicatio LEFT EYE QID [facility] Last Admin: 05/21/18 13:11 Dose: 1 applicatio Glucagon (Glucagon Inj) 1 mg OTHER PRN PRN PRN Reason: for Hypoglycemia Protocol Hydralazine HCl (Apresoline) 25 mg PO BID [facility] Last Admin: 05/21/18 09:12 Dose: 25 mg Hydralazine HCl (Apresoline) 10 mg PO QID PRN PRN Reason: SBP >180, DBP>100 Sodium Chloride (Ns Inj) 1,000 mls @ 100 mls/hr IV.CONT .Q10H [facility] Last Admin: 05/21/18 09:13 Dose: 100 mls/hr Insulin Aspart (Novolog Insulin Correctional Sugar Inj) 0 unit SQ ACHS JUDY; Protocol Last Admin: 05/21/18 13:10 Dose: 14 unit Insulin Detemir (Levemir Inj) 10 unit SQ BID JUDY Lactulose (Lactulose Liq) 30 ml PO DAILY PRN PRN Reason: SEVERE CONSITIPATION Ondansetron HCl (Zofran Odt) 4 mg PO Q6H PRN PRN Reason: NAUSEA OR VOMITING Senna/Docusate Sodium (Charisse-Colace) 1 tab PO BID [facility] Last Admin: 05/21/18 09:12 Dose: Not Given Sennosides (Senokot) 17.2 mg PO Q12H PRN PRN Reason: Moderate Constipation Sodium Chloride (Ns Flush) 2 ml IV.FLUSH PRN PRN PRN Reason: FLUSH AFTER USING IV ACCESS Last Admin: 05/19/18 16:25 Dose: 2 ml Temazepam (Restoril) 15 mg PO HS PRN PRN Reason: INSOMNIA Allergies Allergy/AdvReac Type Severity Reaction Status Date / Time No Known Allergies Allergy Unverified 05/19/18 14:49 Home Medications Medication Instructions Recorded Confirmed Type Unable to Obtain Home Meds 05/19/18 05/19/18 History Exam Vital signs: Vital Signs 05/20/18 16:00 05/21/18 00:00 05/21/18 03:49 Temperature 98.0 F 98.1 F 98.7 F Pulse Rate 76 39 L 83 Respiratory Rate 18 17 16 Blood Pressure 159/82 H 171/76 H 173/85 H Pulse Oximetry 97 95 96 05/21/18 07:57 05/21/18 08:08 05/21/18 12:00 Temperature 97.8 F 97.7 F Pulse Rate 65 73 104 H Respiratory Rate 18 18 Blood Pressure 190/84 H 148/86 H Pulse Oximetry 99 99 05/21/18 12:35 05/21/18 15:21 Temperature 97.8 F Pulse Rate 76 90 Respiratory Rate 16 Blood Pressure 197/88 H Pulse Oximetry 97 Intake & Output 05/20/18 05/21/18 05/21/18 18:59 06:59 18:59 Intake Total 1000 / 1000 1000 / 1000 Output Total 800 / 800 300 / 300 Balance 200 / 200 700 / 700 Intake: IV 1000 / 1000 1000 / 1000 NS Inj 1,000 ML @ 100 mls/hr IV 1000 / 1000 1000 / 1000 .CONT .Q10H JUDY Rx#:[id number] Output: Urine 800 / 800 300 / 300 Other: # Voids 1 Narrative: Physical examination completed by the primary team. On my examination today, the patient appears to be in no acute physical distress. No motor abnormalities noted. Labs and vital signs reviewed: Laboratory Tests 05/19/18 05/20/18 05/21/18 14:45 06:50 06:10 WBC 8.8 Hgb 10.7 L Plt Count 182 Sodium Potassium Chloride Carbon Dioxide BUN Creatinine AST 10 L ALT 15 Alkaline Phosphatase 53 TSH 1.620 05/21/18 06:10 WBC Hgb Plt Count Sodium 141 Potassium 3.5 Chloride 109 H Carbon Dioxide 22.3 BUN 43 H Creatinine 2.94 H AST ALT Alkaline Phosphatase TSH UA reviewed. Head CT reveals atrophy and small vessel disease. Mental Status Examination Appearance: Disheveled Consciousness: Alert Orientation: Person, Place, Date/Time (May 2018) Motor Activity: Abnormal gait Speech: Unremarkable Language: Other (Somewhat rambling) Fund of Knowledge: Adequate Attention and Concentration: Other (Fair) Memory: Impaired Mood: Appropriate Affect: Appropriate Thought Process & Associations: Circumstantial Thought Content: Appropriate Hallucination Type: None Delusion Type: None Suicidal Ideation: No Suicidal Plan: No Suicidal Intention: No Homicidal Ideation: No Homicidal Plan: No Homicidal Intention: No Insight: Poor Judgment: Poor Assessment and Plan - Assessment (1) Cognitive deficits Code(s): R41.89 - Other symptoms and signs involving cognitive functions and awareness Status: Acute - Plan Plan: 78-year-old male with psychiatric history as detailed above presently in observation in the CDU for management of HTN, RALEIGH and encephalopathy. Psychiatry is consulted on account of altered mental status. On my examination today, the patient presents as confused, and bedside cognitive screening bears this out. There is no evidence of unstable mood, anxiety or psychotic disorder in this patient at this time. Head CT reveals atrophy and small vessel disease. My suspicion is that the patient has underlying major neurocognitive disorder, possibly with some component of overlying delirium related to acute medical issues. I recommend the following: --Consider AMS workup to include: thiamine, folate, B12, ammonia, RPR, HIV. --Consider OT eval for assessment of capacity to complete ADLs. --Patient will require supervision and should not be discharged home alone lest he wander again. He would likely benefit from placement, at least temporarily, until responsible family can provide needed level of care for patient. --There is no evidence of behavioral disturbance in the setting of patient's cognitive impairment. There is no evidence of unstable mental illness otherwise. He denies any suicidal or homicidal ideation. Patient does not meet the Roberts act criteria, nor does he require inpatient psychiatric admission at this time. That having been said, the patient does not have capacity to make disposition decisions as a consequence of his cognitive impairment. --If plan if for patient to return home at some point (with supervision), patient's rifles should be secured. Case d/w KYE Feliz. Thank you very much for this consultation. Please call or page [phone] during daylight hours with questions. I am happy to follow up as needed but will not plan to make routine follow-up visits with this patient. Justification for Continued Inpatient Stay: Per primary team.
[2018-05-21] MEDS: Insulin Detemir Inj 1,000 UNIT/10 ML Vial SQ SCH (21:22)
[2018-05-21] MEDS ORDERED: Metoprolol Tartrate 50 MG Tablet PO ONE (23:43)
[2018-05-22] MEDS: Sod Chloride 0.9% Inj 1,000 ML IV.CONT SCH ×2 (06:26→19:58)
[2018-05-22] MEDS: Erythromycin 0.5% Opth Oint 3.5 GM Tube LEFT EYE SCH ×4 (09:04→20:51)
[2018-05-22] MEDS: hydrALAZINE 25 MG Tablet PO SCH ×2 (09:05→20:37)
[2018-05-22] MEDS: Insulin Detemir Inj 1,000 UNIT/10 ML Vial SQ SCH ×2 (09:05→20:51)
[2018-05-22] MEDS: Senna/Docusate Sodium 8.6/50 MG Tablet PO SCH ×2 (09:05→20:37)
[2018-05-22] MEDS: amLODIPine 5 MG Tablet PO SCH (09:05)
[2018-05-22] MEDS: Insulin NovoLOG Aspart Correctional Sugar Inj SQ SCH ×4 (09:06→20:51)
--- NOTE | 2018-05-22 09:56 | P.PN ---
Subjective Interval history: Follow-up visit HTN, DM 2, CKD stage III, altered mental status. Patient seen and examined today. Awake and alert. Patient states he is doing okay. Patient is thankful for the care that he is getting. States that his niece named Theresa is unable to take care of him because she drives truck throughout town for most parts. States he is able to take care of himself able to "if he is given a chance he also states he is able to manage this, if someone checks on him." Denies pain and discomfort. Denies SOB/ dyspnea. Denies chest pain, palpitations, headaches, dizziness. Denies fevers, chills, n/v/d. Denies dysuria. Physical Exam Vital signs: Vital Signs 05/21/18 12:00 05/21/18 12:35 05/21/18 15:21 Temperature 97.7 F 97.8 F Pulse Rate 104 H 76 90 Respiratory Rate 18 16 Blood Pressure 148/86 H 197/88 H Pulse Oximetry 99 97 05/21/18 16:10 05/21/18 17:04 05/21/18 19:23 Temperature 98.4 F Pulse Rate 52 L 95 H Respiratory Rate 18 Blood Pressure 190/106 H 181/88 H Pulse Oximetry 95 05/21/18 20:00 05/21/18 23:01 05/21/18 23:21 Temperature 98.1 F Pulse Rate 87 96 H Respiratory Rate 17 Blood Pressure 187/90 H 180/95 H Pulse Oximetry 100 05/22/18 00:14 05/22/18 01:45 05/22/18 02:12 Temperature Pulse Rate 114 H 42 L Respiratory Rate Blood Pressure 170/74 H Pulse Oximetry 05/22/18 07:45 05/22/18 08:16 Temperature 97.6 F Pulse Rate 50 L 81 Respiratory Rate 18 Blood Pressure 186/91 H Pulse Oximetry 98 Intake & Output 05/21/18 05/22/18 05/22/18 18:59 06:59 18:59 Intake Total 1000 / 1000 975 / 975 Output Total 450 / 450 450 / 450 Balance 550 / 550 525 / 525 Intake: IV 1000 / 1000 975 / 975 NS Inj 1,000 ML @ 100 mls/hr IV 1000 / 1000 975 / 975 .CONT .Q10H JUDY Rx#:[id number] Output: Urine 450 / 450 450 / 450 Other: # Voids 950 Narrative: GENERAL: This is a well-nourished, well-developed patient, in no apparent distress. SKIN: Warm and dry. HEENT: Normocephalic. Left eye erythema. Nose without bleeding. Airway patent. NECK: Trachea midline. CARDIOVASCULAR: Regular rate and rhythm without murmurs, gallops, or rubs. RESPIRATORY: Diminished bases. No wheezes, rales, or rhonchi. GASTROINTESTINAL: Abdomen soft, non-tender, nondistended. Bowel Sounds normoactive x4. MUSCULOSKELETAL: Extremities without clubbing, cyanosis. Bilateral lower extremity +1 pitting NEUROLOGICAL: Awake and alert. Oriented to place, person, month, year, president. No focal neuro deficit. Moves all extremities. Normal speech. Results - Labs CBC & Chem 7: 05/21/18 06:10 05/22/18 16:10 Laboratory Results - last 24 hr 05/21/18 05/21/18 05/21/18 06:10 12:27 18:02 POC Glucose 220 H 167 H Magnesium 1.9 05/22/18 08:13 POC Glucose 87 Magnesium - Procedures None Assessment and Plan - Assessment (1) Encephalopathy Code(s): G93.40 - Encephalopathy, unspecified Status: Acute (2) HTN (hypertension) Code(s): I10 - Essential (primary) hypertension Status: Acute (3) DM (diabetes mellitus) Code(s): E11.9 - Type 2 diabetes mellitus without complications Status: Acute (4) RALEIGH (acute kidney injury) Code(s): N17.9 - Acute kidney failure, unspecified Status: Acute (5) Breast cancer in male Code(s): C50.929 - Malignant neoplasm of unspecified site of unspecified male breast Status: Acute - Plan This is a 78-year-old male with PMH of HTN, DM, CKD (Stage III) and Breast CA s/ p Left Mastectomy who was brought to the ER by EMS for AMS. Encephalopathy, improved Underlying cognitive deficit Generalized weakness -baseline largely unknown, poor historian. -CT Head w/ no acute findings. -Niece Layo is camp program director, however niece is currently admitted for BA/DKA and pt unable to care for self. -Psych evaluation. Appreciate recommendations. Patient will require supervision should not be discharged home alone last he wonder again. Patient does not have capacity to make disposition decisions as consequences of his cognitive impairment. Patient rifles at home should also need to be secured when he returns home. -PT for eval/tx -Needs PT/OT rehab for strengthening and improving ADL activities HTN, Uncontrolled HLD Bradycardia 40-50, Arrhythmia -PRN hydralazine -Monitor BP, -Monitor labs -7 beats Vtach, spontaneous return to SR -Magnesium 1.9, EKG reviewed SR First degree AVB -Restart home meds nifedipine, decrease metoprolol dose from home from 100 to 25mg BID, hold losartan secondary RALEIGH -Monitor for bradycardia, monitor HR RALEIGH: Creatinine 3.29, previously 2.95 on 02/17/18, -monitor I/O, IVF for hydration -Improving -repeat labs, pending Left eye Conjunctivitis Left eye, erythema -States he had cataract sx done in the left eye and has eyedrops for it -eyedrops/ointment, erythromycin -Restart eyes drops from home DM 2 -Sliding scale w/ Accu-Cheks -HgA1C 8.7 -Levemir 10 units BID -BG improved. DVT Prophylaxis: SCD/Teds Code Status: Full code Discussed Condition With: Patient, nursing Discharge Planning: Plan to DC SNF. CM following
--- NOTE | 2018-05-22 16:07 | ECG ---
Date Performed: 05/21/2018 Time Performed: 14:56:31 PTAGE: 78 years EKG: Sinus rhythm WITH A VERY LONG CYCLE OF AV WINKEBACH FOLLOWED BY A 3:2 CYCLE OF AV WINKEBACH NONSPECIFIC ST-T MORGAN GE PROBABLE LVH Compared to previous tracing, the baseline artifact precluded a proper interpretation . However, there were pauses, and I suspect that the previous tracing showed AV Winkebach, as there w ere irregularities and pauses on the rhythm strip and first degree AV block on some of the 12-lead re cordings. Clinical correlation recommended. ABNORMAL ECG PREVIOUS TRACING : 05/19/2018 16.59 DOCTOR: Joesph Ta Interpretating Date/Time 05/22/2018 16:05:20
[2018-05-22 17:01] LABS: Carbon Dioxide 25.4 meq/L (21.0-32.0); Potassium 3.7 meq/L (3.5-5.1)
[2018-05-22] MEDS: Sodium Chloride 0.45 % Inj 1,000 ML IV.CONT SCH (17:47)
[2018-05-22] MEDS ORDERED: Rivaroxaban 15 MG Tablet PO SCH (18:00)
[2018-05-22] MEDS: Metoprolol Tartrate 25 MG Tablet PO SCH (20:37)
[2018-05-22] MEDS: Dorzolamide-Timolol 2/0.5% Opth Drops 10 ML Bottle LEFT EYE SCH (20:38)
[2018-05-22] MEDS ORDERED: DORZOLAMIDE TIMOLOL LEFT EYE SCH (21:00)
[2018-05-23] MEDS: Sodium Chloride 0.45 % Inj 1,000 ML IV.CONT SCH ×2 (04:26→13:40)
[2018-05-23 07:43] LABS: Calcium 8.7 mg/dL (8.5-10.1); Carbon Dioxide 21.5 meq/L (21.0-32.0); Potassium 3.7 meq/L (3.5-5.1)
[2018-05-23] MEDS: hydrALAZINE 25 MG Tablet PO SCH (08:31)
[2018-05-23] MEDS: Senna/Docusate Sodium 8.6/50 MG Tablet PO SCH (08:31)
[2018-05-23] MEDS: Dorzolamide-Timolol 2/0.5% Opth Drops 10 ML Bottle LEFT EYE SCH (08:31)
[2018-05-23] MEDS: Insulin Detemir Inj 1,000 UNIT/10 ML Vial SQ SCH (08:31)
[2018-05-23] MEDS: Metoprolol Tartrate 25 MG Tablet PO SCH (08:31)
[2018-05-23] MEDS: Insulin NovoLOG Aspart Correctional Sugar Inj SQ SCH ×2 (08:33→13:38)
[2018-05-23] MEDS: Erythromycin 0.5% Opth Oint 3.5 GM Tube LEFT EYE SCH (08:34)
[2018-05-23 08:41] VITALS: RESP 14
--- NOTE | 2018-05-23 09:16 | P.PN ---
Subjective Interval history: Follow-up visit HTN, DM 2, CKD stage III, altered mental status. Patient seen and examined today. Alert and oriented place, time, person. Knows his taking Xarelto for LLE DVT. Patient more coherent. Denies pain and discomfort. Denies SOB/ dyspnea. Denies chest pain, palpitations, headaches, dizziness. Denies fevers, chills, n/v/d. Denies dysuria. Physical Exam Vital signs: Vital Signs 05/22/18 11:31 05/22/18 11:37 05/22/18 15:42 Temperature 98.1 F 99.0 F Pulse Rate 80 82 64 Respiratory Rate 18 18 Blood Pressure 178/79 H 190/86 H Pulse Oximetry 99 99 05/22/18 16:00 05/22/18 19:43 05/22/18 20:00 Temperature Pulse Rate 55 L 86 74 Respiratory Rate Blood Pressure 184/95 H Pulse Oximetry 98 05/22/18 23:54 05/23/18 00:00 05/23/18 04:00 Temperature 98.8 F 98.5 F Pulse Rate 44 L 80 65 Respiratory Rate 17 17 Blood Pressure 124/60 175/76 H Pulse Oximetry 98 99 05/23/18 04:25 05/23/18 08:00 Temperature 99.3 F Pulse Rate 69 64 Respiratory Rate 14 Blood Pressure 160/67 H Pulse Oximetry 99 Intake & Output 05/22/18 05/23/18 05/23/18 18:59 06:59 18:59 Intake Total 1999 Output Total 925 / 925 Balance -925 / -925 1999 Intake: IV 1999 NS Inj 1,000 ML @ 100 mls/hr IV 1000 / 1000 .CONT .Q10H JUDY Rx#:[id number] 11/02 Normal Saline Inj 1,000 ML 1000 / 1000 @ 100 mls/hr IV.CONT .Q10H JUDY Rx#:[id number] Output: Urine 925 / 925 Other: # Voids 4 Date of Last Bowel Movement 05/21/18 Narrative: GENERAL: This is a well-nourished, well-developed patient, in no apparent distress. SKIN: Warm and dry. HEENT: Normocephalic. Left eye erythema. Nose without bleeding. Airway patent. NECK: Trachea midline. CARDIOVASCULAR: Regular rate and rhythm without murmurs, gallops, or rubs. RESPIRATORY: Diminished bases. No wheezes, rales, or rhonchi. GASTROINTESTINAL: Abdomen soft, non-tender, nondistended. Bowel Sounds normoactive x4. MUSCULOSKELETAL: Extremities without clubbing, cyanosis. Bilateral lower extremity Trace NEUROLOGICAL: Awake and alert. Oriented to place, person, month, year. No focal neuro deficit. Moves all extremities. Normal speech. Results - Labs CBC & Chem 7: 05/21/18 06:10 05/23/18 06:51 Laboratory Results - last 24 hr 05/22/18 05/22/18 05/22/18 12:56 16:10 17:43 Sodium 144 Potassium 3.7 Chloride 111 H Carbon Dioxide 25.4 Anion Gap 8 BUN 35 H Creatinine 2.69 H Estimated GFR 28 L POC Glucose 183 H 180 H Random Glucose 189 H Calcium 8.0 L 05/22/18 05/23/18 05/23/18 20:44 06:51 07:44 Sodium 141 Potassium 3.7 Chloride 110 H Carbon Dioxide 21.5 Anion Gap 10 BUN 30 H Creatinine 2.52 H Estimated GFR 30 L POC Glucose 195 H 122 H Random Glucose 122 H Calcium 8.7 - Procedures None Assessment and Plan - Assessment (1) Encephalopathy Code(s): G93.40 - Encephalopathy, unspecified Status: Acute (2) HTN (hypertension) Code(s): I10 - Essential (primary) hypertension Status: Acute (3) DM (diabetes mellitus) Code(s): E11.9 - Type 2 diabetes mellitus without complications Status: Acute (4) RALEIGH (acute kidney injury) Code(s): N17.9 - Acute kidney failure, unspecified Status: Acute (5) Breast cancer in male Code(s): C50.929 - Malignant neoplasm of unspecified site of unspecified male breast Status: Acute - Plan This is a 78-year-old male with PMH of HTN, DM, CKD (Stage III) and Breast CA s/ p Left Mastectomy who was brought to the ER by EMS for AMS. Encephalopathy, improved Underlying cognitive deficit Generalized weakness -baseline largely unknown, poor historian. -CT Head w/ no acute findings. -Niece Layo is medical registrar, however niece is currently admitted for BA/DKA and pt unable to care for self. -Psych evaluation. Appreciate recommendations. Patient will require supervision should not be discharged home alone last he wonder again. Patient does not have capacity to make disposition decisions as consequences of his cognitive impairment. Patient rifles at home should also need to be secured when he returns home. -PT for eval/tx -Needs PT/OT rehab for strengthening and improving ADL activities -Improved mentation, may DC home with HHC HTN, Uncontrolled HLD Bradycardia 40-50, Arrhythmia -PRN hydralazine -Monitor BP, -Monitor labs -7 beats Vtach, spontaneous return to SR -Magnesium 1.9, EKG reviewed SR First degree AVB -Restart home meds nifedipine, decrease metoprolol dose from home from 100 to 25mg BID, hold losartan secondary RALEIGH -Monitor for bradycardia, monitor HR. Hydralazine BID RALEIGH: Creatinine 3.29, previously 2.95 on 02/17/18, -monitor I/O, IVF for hydration -Improving 3.29 --> 2.69 -->2.52 -Repeat labs, pending Left eye Conjunctivitis S/P cataract sx -States he had cataract sx done in the left eye and has eyedrops for it -eyedrops/ointment, erythromycin dc -Restart eyes drops from home DM 2 -Sliding scale w/ Accu-Cheks -HgA1C 8.7 -Levemir 10 units BID -BG improved. -DC home on Januvia and glipizide 2.5mg. Follow up with PCP DVT Prophylaxis: SCD/Teds Code Status: Full Code Discussed Condition With: Patient, nursing, CM, PT, Dr. Baeza Discharge Planning: Plan to DC SNF. CM following
[2018-05-23 11:44] VITALS: BP 109/78; PULSE 81; TEMP 99; O2SAT 98
--- NOTE | 2018-05-23 15:43 | P.DS ---
Date of admission: 05/19/18 21:36 Primary care physician: German Farr Attending physician on discharge: Conner Baeza Anticipated date of discharge: 05/23/18 Brief History from admission: This is a 78-year-old male with PMH of HTN, DM, CKD (Stage III) and Breast CA s/ p Left Mastectomy who was brought to the ER by EMS for AMS. Pt poor historian, but tells me his niece normally takes care of him, states niece didn't come home last night and pt had gone to neighbor's house today to look for her, states neighbor called EMS because he was concerned he couldn't take care of himself. On exam, pt is confused but able to answer some questions. Tells me it's 2018, knows he's at [employer], cannot recall name of President but tells me "he's ugly". Pt without complaints at this time. On arrival, BP 199/98, HR 58 , O2 sat 99% on RA, Afebrile. CBC essentially unremarkable. Na 146. Creatinine 3.29, previously 2.95 on 02/17/2018. UA negative for UTI. CT Head with no acute findings. S/p Hydralazine 10mg IV and Clonidine 0.2mg po in ER w / improvement, repeat BP 150's systolic. DS: Diagnosis - Discharge Diagnosis (1) Encephalopathy Status: Acute (2) HTN (hypertension) Status: Acute (3) DM (diabetes mellitus) Status: Acute (4) RALEIGH (acute kidney injury) Status: Acute (5) Breast cancer in male Status: Acute DS: Medications - Discharge Medications Prescriptions: hydralazine 25 mg PO BID #60 tab metoprolol tartrate 25 mg PO BID #60 tab sitagliptin [Januvia] 50 mg PO DAILY #30 tab DS: Summary Hospital Course: 78-year-old male with PMH of HTN, DM, CKD (Stage III) and Breast CA s/p Left Mastectomy who was brought to the ER by EMS for AMS. Diagnosed with encephalopathy. Patient has underlying cognitive deficit. Psych evaluated the patient states requires supervision when home. As he will wander. Patient does not have capacity to make disposition decisions as consequences of his cognitive impairment as per psych. Spoke with cinthia Cardenas, who will arrange for a neighbor to be with the patient and also to look after the patient while she is away. States that she will be back or Wednesday. Discussed plan of sending the patient using a cab and she is agreeable to it. Home health care has been arranged for patient. Physical therapy, occupational therapy, and nursing will follow patient at home. Patient came in with uncontrolled blood pressure. He restarted his medication from home but with a lower dose of metoprolol to 25 mg twice daily as patient has episodes of bradycardia during hospitalization. Losartan will be held for now secondary to acute kidney injury on chronic kidney disease. He will have hydralazine 25 mg twice daily at home. Patient had acute kidney injury were and he remained with creatinine of 3.29 previous creatinine was 2.95 on 02/17/18. This is improved and now with creatinine of 2.5 to after IV fluid hydration. Notable left eye conjunctivitis , status post cataract surgery restarted on his home medication eyedrops. He will continue using this eyedrops at home. Patient has diabetes type 2. Hemoglobin A1c 8.7. He was started on Levemir 10 units twice daily in the inpatient and has better control of his sugar. He will not take anymore metformin for home. He will be started on low-dose glipizide at 2.5 mg and also Januvia at 50 mg daily. He needs to follow-up with his primary care doctor to adjust his medications including his blood pressure medications. Patient has improved mentation alert and oriented to self, place, time, president, current condition. Patient has met maximal benefits of hospitalization. Clinically stable for discharge. - Time Spent with Patient Total time spent providing and/or coordinating discharge services: Greater than 30 minutes - Quality: VTE Deep Vein Thrombosis/Pulmonary Embolism Present on Admission: No Exam Vital signs: Vital Signs 05/22/18 16:00 05/22/18 19:43 05/22/18 20:00 Temperature Pulse Rate 55 L 86 74 Respiratory Rate Blood Pressure 184/95 H Pulse Oximetry 98 05/22/18 23:54 05/23/18 00:00 05/23/18 04:00 Temperature 98.8 F 98.5 F Pulse Rate 44 L 80 65 Respiratory Rate 17 17 Blood Pressure 124/60 175/76 H Pulse Oximetry 98 99 05/23/18 04:25 05/23/18 08:00 05/23/18 11:41 Temperature 99.3 F 99.0 F Pulse Rate 69 64 81 Respiratory Rate 14 14 Blood Pressure 160/67 H 109/78 Pulse Oximetry 99 98 Intake & Output 05/22/18 05/23/18 05/23/18 18:59 06:59 18:59 Intake Total 1999 1000 / 1000 Output Total 925 / 925 Balance -925 / -925 1999 1000 / 1000 Intake: IV 1999 1000 / 1000 NS Inj 1,000 ML @ 100 mls/hr IV 1000 / 1000 .CONT .Q10H JUDY Rx#:[id number] 1/ Normal Saline Inj 1,000 ML 999 / 1000 1000 / 1000 @ 100 mls/hr IV.CONT .Q10H JUDY Rx#:[id number] Output: Urine 925 / 925 Other: # Voids 4 Date of Last Bowel Movement 05/21/18 Narrative: GENERAL: This is a well-nourished, well-developed patient, in no apparent distress. SKIN: Warm and dry. HEENT: Normocephalic. Left eye erythema. Nose without bleeding. Airway patent. NECK: Trachea midline. CARDIOVASCULAR: Regular rate and rhythm without murmurs, gallops, or rubs. RESPIRATORY: Diminished bases. No wheezes, rales, or rhonchi. GASTROINTESTINAL: Abdomen soft, non-tender, nondistended. Bowel Sounds normoactive x4. MUSCULOSKELETAL: Extremities without clubbing, cyanosis. Bilateral lower extremity Trace NEUROLOGICAL: Awake and alert. Oriented to place, person, month, year. No focal neuro deficit. Moves all extremities. Normal speech. Results Procedures completed during hospitalization: None Labs on day of discharge: Labs from last 24 hours 05/23/18 05/23/18 05/23/18 11:46 07:44 06:51 Sodium 141 Potassium 3.7 Chloride 110 H Carbon Dioxide 21.5 Anion Gap 10 BUN 30 H Creatinine 2.52 H Estimated GFR 30 L POC Glucose 212 H 122 H Random Glucose 122 H Calcium 8.7 05/22/18 05/22/18 05/22/18 20:44 17:43 16:10 Sodium 144 Potassium 3.7 Chloride 111 H Carbon Dioxide 25.4 Anion Gap 8 BUN 35 H Creatinine 2.69 H Estimated GFR 28 L POC Glucose 195 H 180 H Random Glucose 189 H Calcium 8.0 L - Impressions ITS Impressions Head CT 05/19/18 15:19 CONCLUSION: 1. Chronic changes with cortical and central atrophy as well as periventricular small vessel ischemic demyelination. 2. Nothing acute Discharge Plan - Discharge Disposition Patient Disposition: /Home Health Service - Discharge Condition Condition: Stable - Discharge Order Discharge Orders: Discharge Order (Routine); Ordered 05/23/18 Ordered By: Linda Feliz - Physicians Team Primary Care Provider: German Farr Attending Provider: Conner Baeza Other Providers: Sherif Gorman ; Deniz Ambriz MD ; [facility], [place] ; [facility],[place]
== END 2018-05-23 18:46 | disposition home health service (06) ==
LOC: NEPD 14:20 → NEDA 14:20 → NEPGCP 14:20 → UNDODISOB 05-21 18:04
PROVIDERS: ADMIT Internal Medicine; ATTEND Internal Medicine

== ENCOUNTER 2018-09-16 21:45 | Observation (INO) ==
[2018-09-16] MEDS ORDERED: Sodium Chlor 0.9% Inj 500 ML IV.SIG SCH (22:00)
[2018-09-16 22:17] LABS: Baso % (Auto) 0.4 % (0.0-2.0); Eos # (Auto) 0.1 th/mm3 (0.0-0.4); Eos % (Auto) 1.2 % (0.0-4.0); Hematocrit 34.4 % (39.0-51.0); Hemoglobin 11.5 gm/dL (13.0-17.0); Lymph # (Auto) 1.8 th/mm3 (1.0-4.8); Lymph % (Auto) 17.2 % (9.0-44.0); Mean Corpuscular HGB Conc 33.5 % (32.0-36.0); Mean Corpuscular Volume 92.5 fL (80.0-100.0); Mean Platelet Volume 8.2 fL (7.0-11.0); Mono # (Auto) 0.6 th/mm3 (0.0-0.9); Mono % (Auto) 6.1 % (0.0-8.0); Neut # (Auto) 7.9 th/mm3 (1.8-7.7); Neut % (Auto) 75.1 % (16.0-70.0); Platelet Count 199 th/mm3 (150-450); Red Blood Count 3.71 mil/mm3 (4.50-5.90); Red Cell Distribution Width 15.8 % (11.6-17.2); White Blood Count 10.6 th/mm3 (4.0-11.0)
--- NOTE | 2018-09-16 22:19 | ED ---
HPI General Chief complaint: Diabetic Stated complaint: Hyperglycemic Time Seen by Provider: 09/16/18 21:50 Source: patient, family and EMS Mode of arrival: EMS Limitations: altered mental status History of Present Illness HPI narrative: 78-year-old male the presents to the ED for evaluation of confusion, hyperglycemia and hyper tension. Patient has a history of breast cancer, kidney disease, hypertension, diabetes as well as some cognitive deficits. Per report I was given per EVAC as patient himself is not a good historian patient has progressively getting worse and more altered for the past couple of days. Apparently patient was found to be hyperglycemic and the family thought that they could give him some ice cream to see if this will improve his confusion but unfortunate made it worse. Blood sugar per EVAC was elevated in the 400s. Patient himself does answer some questions appropriately but again is a really hard historian does appear to be very confused and altered. He is not aggressive. Per report I was given for him family apparently who takes care of him is also having some cognitive issues and has not been taking care of the patient as much. Patient denies any other medical issues at this time. No pain. Related Data Home Medications Medication Instructions Recorded Confirmed anastrozole [Arimidex] 1 mg PO DAILY 05/22/18 09/16/18 dorzolamide-timolol 1 drop LEFT EYE BID 05/22/18 09/16/18 losartan 50 mg PO DAILY 05/22/18 09/16/18 nifedipine 60 mg PO DAILY 05/22/18 09/16/18 rivaroxaban [Xarelto] 15 mg PO QPM 05/22/18 09/16/18 rosuvastatin [Crestor] 10 mg PO DAILY 05/22/18 09/16/18 Previous Rx's Medication Instructions Recorded glipizide 2.5 mg PO DAILY #30 tab 05/23/18 hydralazine 25 mg PO BID #60 tab 05/23/18 metoprolol tartrate 25 mg PO BID #60 tab 05/23/18 sitagliptin [Januvia] 50 mg PO DAILY #30 tab 05/23/18 azithromycin 250 mg PO DAILY 3 Days #3 tab 09/18/18 Allergies Allergy/AdvReac Type Severity Reaction Status Date / Time No Known Allergies Allergy Verified 09/16/18 21:57 Review of Systems ROS: all other systems reviewed are negative [facility] Medical History Medical History Diabetes (Acute) HTN (hypertension) (Acute) Surgical History Surgical History H/O left mastectomy (Acute) History of hip surgery (Acute) Social History Social History Substance History: No History of Abuse Second Hand Smoke Exposure: No Smoking Status: Cognitive impairment How Often Do You Have a Drink Containing Alcohol: Unable to Obtain Recent Out of Country Travel within the Last 8 Weeks: No Immunization History Tetanus Immunization: Unable to Assess Exam Narrative Exam Narrative: GENERAL: Well-appearing SKIN: Focused skin assessment warm/dry. HEAD: Atraumatic. Normocephalic. EYES: Pupils equal and round. No scleral icterus. No injection or drainage. ENT: No nasal bleeding or discharge. Mucous membranes pink and moist. NECK: Trachea midline. No JVD. CARDIOVASCULAR: Regular rate and rhythm. No murmur appreciated. RESPIRATORY: No accessory muscle use. Clear to auscultation. Breath sounds equal bilaterally. GASTROINTESTINAL: Abdomen soft, non-tender, nondistended. Hepatic and splenic margins not palpable. MUSCULOSKELETAL: No obvious deformities. No clubbing. No cyanosis. No edema. Full range of motion of the upper and lower extremities bilaterally. 2+ pulses bilaterally. NEUROLOGICAL: Awake and alert. No obvious cranial nerve deficits. Motor grossly within normal limits. Normal speech. PSYCHIATRIC: Appropriate mood and affect; insight and judgment normal. Course Initial Documented Vital Signs Temperature 98.7 F 09/16/18 21:50 Pulse Rate 98 H 09/16/18 21:50 Respiratory Rate 22 09/16/18 21:50 Blood Pressure 173/107 H 09/16/18 21:50 Pulse Oximetry 98 09/16/18 21:50 Last Documented Vital Signs Temperature 98.2 F 09/18/18 07:30 Pulse Rate 75 09/18/18 07:30 Respiratory Rate 20 09/18/18 07:30 Blood Pressure 144/71 H 09/18/18 07:30 Pulse Oximetry 98 09/18/18 07:30 Medical Decision Making LAURE Attestation LAURE supervised visit: Yes Attestation: I, Dr. Leggett, have reviewed the advance practice practitioner's documentation and am in agreement, met with the patient face to face, made the diagnosis, and the medical decision making was done by me. *My assessment and Findings: Patient is a 78 year old male brought in by EMS due to altered mental status. Patient is acutely altered, unable to provide any history. On exam, he does not make sense while speaking. No focal weakness observed. IV established, labs sent. CXR concerning for pneumonia. Patient treated with antibiotics and admitted for further management. MDM Narrative Medical decision making narrative: 78-year-old male the presents to the ED for evaluation of altered mental status. Patient was properly examined and was found to have signs and symptoms consistent appears to be altered mental status. Unclear etiology at this time. Labs and imaging ordered. Labs and imaging did show hyperglycemia what appears to be chronic kidney disease as well as possible consolidation on the lung. Concerning for pneumonia At this time as patient is still altered and recommendations for admission. Family and patient agree with this. Case discussed with Dr. Mendes who agrees to admission to her service. Dr. Leggett was made aware of findings and agrees with this plan. patient was started azithromycin and ceftriaxone to cover for this. Medical Screen Exam Complete: Yes Emergency Medical Condition: Yes Differential Diagnosis Differential Diagnosis: Altered mental status versus encephalopathy versus UTI versus diabetes versus hyperglycemia versus hypertension Medical Records Medical records reviewed: Yes I reviewed the patient's medical records. Lab Data Lab results reviewed: Yes I reviewed the patient's lab results. Result diagrams: 09/18/18 04:45 09/18/18 04:45 Lab Results 09/16/18 09/16/18 09/16/18 Range/Units 21:18 22:00 22:00 WBC 10.6 (4.0-11.0) th/mm3 RBC 3.71 L (4.50-5.90) mil/mm3 Hgb 11.5 L (13.0-17.0) gm/dL Hct 34.4 L (39.0-51.0) % MCV 92.5 (80.0-100.0) fL MCH 31.0 (27.0-34.0) pg MCHC 33.5 (32.0-36.0) % RDW 15.8 (11.6-17.2) % Plt Count 199 (150-450) th/mm3 MPV 8.2 (7.0-11.0) fL Neut % (Auto) 75.1 H (16.0-70.0) % Lymph % (Auto) 17.2 (9.0-44.0) % [place] % (Auto) 6.1 (0.0-8.0) % Eos % (Auto) 1.2 (0.0-4.0) % Baso % (Auto) 0.4 (0.0-2.0) % Neut # (Auto) 7.9 H (1.8-7.7) th/mm3 Lymph # (Auto) 1.8 (1.0-4.8) th/mm3 [place] # (Auto) 0.6 (0.0-0.9) th/mm3 Eos # (Auto) 0.1 (0.0-0.4) th/mm3 Baso # (Auto) 0.0 (0.0-0.2) th/mm3 WBC Differential . Differential Comment Auto diff final PT 10.7 (9.8-11.6) sec INR 1.1 Ratio APTT 23.0 L (23.4-31.7) sec Sodium (136-145) meq/L Potassium (3.5-5.1) meq/L Chloride (98-107) meq/L Carbon Dioxide (21.0-32.0) meq/L Anion Gap (5-15) meq/L BUN (7-18) mg/dL Creatinine (0.60-1.30) mg/dL Estimated GFR (>89) mL/min POC Glucose (68-110) mg/dl Random Glucose (74-106) mg/dL Hemoglobin A1c (4.3-6.0) % Calcium (8.5-10.1) mg/dL Prot Corrected Calcium (8.5-10.1) mg/dL Magnesium (1.5-2.5) mg/dL Total Bilirubin (0.2-1.0) mg/dL AST (15-37) U/L ALT (12-78) U/L Alkaline Phosphatase (45-117) U/L Ammonia (11-32) mcmol/L Troponin I (0.02-0.05) ng/mL Total Protein (6.4-8.2) g/dL Albumin (3.4-5.0) g/dL TSH (0.358-3.740) uIU/mL Urine Color (Yellw/Straw) Urine Clarity (Clear) Urine pH (5.0-8.5) Ur Specific [place] (1.002-1.035) Urine Protein (Neg-Trace) mg/dL Urine Glucose (UA) (Negative) mg/dL Urine Ketones (Negative) mg/dL Urine Occult Blood (Negative) Urine Nitrate (Negative) Urine Bilirubin (Negative) Urine Urobilinogen (Less than 2) mg/dL Ur Leukocyte Esterase (Negative) Urine RBC (0-3) /hpf Urine WBC (0-5) /hpf Hyaline Casts (0-3) /lpf Urine Mucus (Occasional) /lpf Micro UA Comment Ur Microscopic Review Urine Culture Comments Urine Opiates Screen Neg (Neg) Ur Barbiturates Screen Neg (Neg) Ur Amphetamines Screen Neg (Neg) U Benzodiazepines Scrn Neg (Neg) Urine Cocaine Screen Neg (Neg) U Cannabinoids Screen Neg (Neg) Serum Alcohol (0-5) mg/dL 09/16/18 09/16/18 09/16/18 Range/Units 22:00 22:00 22:17 WBC (4.0-11.0) th/mm3 RBC (4.50-5.90) mil/mm3 Hgb (13.0-17.0) gm/dL Hct (39.0-51.0) % MCV (80.0-100.0) fL MCH (27.0-34.0) pg MCHC (32.0-36.0) % RDW (11.6-17.2) % Plt Count (150-450) th/mm3 MPV (7.0-11.0) fL Neut % (Auto) (16.0-70.0) % Lymph % (Auto) (9.0-44.0) % [place] % (Auto) (0.0-8.0) % Eos % (Auto) (0.0-4.0) % Baso % (Auto) (0.0-2.0) % Neut # (Auto) (1.8-7.7) th/mm3 Lymph # (Auto) (1.0-4.8) th/mm3 [place] # (Auto) (0.0-0.9) th/mm3 Eos # (Auto) (0.0-0.4) th/mm3 Baso # (Auto) (0.0-0.2) th/mm3 WBC Differential Differential Comment PT (9.8-11.6) sec INR Ratio APTT (23.4-31.7) sec Sodium 136 (136-145) meq/L Potassium 4.1 (3.5-5.1) meq/L Chloride 101 (98-107) meq/L Carbon Dioxide 26.7 (21.0-32.0) meq/L Anion Gap 8 (5-15) meq/L BUN 24 H (7-18) mg/dL Creatinine 2.62 H (0.60-1.30) mg/dL Estimated GFR 29 L (>89) mL/min POC Glucose (68-110) mg/dl Random Glucose 425 H (74-106) mg/dL Hemoglobin A1c (4.3-6.0) % Calcium 8.3 L (8.5-10.1) mg/dL Prot Corrected Calcium (8.5-10.1) mg/dL Magnesium 1.7 (1.5-2.5) mg/dL Total Bilirubin 0.3 (0.2-1.0) mg/dL AST 11 L (15-37) U/L ALT 14 (12-78) U/L Alkaline Phosphatase 90 (45-117) U/L Ammonia 22 (11-32) mcmol/L Troponin I 0.03 (0.02-0.05) ng/mL Total Protein 8.7 H (6.4-8.2) g/dL Albumin 2.9 L (3.4-5.0) g/dL TSH 2.100 (0.358-3.740) uIU/mL Urine Color Yellow (Yellw/Straw) Urine Clarity Clear (Clear) Urine pH 5.0 (5.0-8.5) Ur Specific [place] 1.015 (1.002-1.035) Urine Protein 100 H (Neg-Trace) mg/dL Urine Glucose (UA) 500 or greater (Negative) mg/dL Urine Ketones Negative (Negative) mg/dL Urine Occult Blood Small H (Negative) Urine Nitrate Negative (Negative) Urine Bilirubin Negative (Negative) Urine Urobilinogen Less than 2 (Less than 2) mg/dL Ur Leukocyte Esterase Negative (Negative) Urine RBC 1 (0-3) /hpf Urine WBC Less than 1 (0-5) /hpf Hyaline Casts 5 (0-3) /lpf Urine Mucus Few H (Occasional) /lpf Micro UA Comment Culture not ind Ur Microscopic Review Not Reportable Urine Culture Comments Culture not ind Urine Opiates Screen (Neg) Ur Barbiturates Screen (Neg) Ur Amphetamines Screen (Neg) U Benzodiazepines Scrn (Neg) Urine Cocaine Screen (Neg) U Cannabinoids Screen (Neg) Serum Alcohol Less than 3 (0-5) mg/dL 09/17/18 09/17/18 09/17/18 Range/Units 08:30 08:30 08:30 WBC 7.3 (4.0-11.0) th/mm3 RBC 3.20 L (4.50-5.90) mil/mm3 Hgb 9.7 L (13.0-17.0) gm/dL Hct 30.3 L (39.0-51.0) % MCV 94.7 (80.0-100.0) fL MCH 30.5 (27.0-34.0) pg MCHC 32.2 (32.0-36.0) % RDW 16.2 (11.6-17.2) % Plt Count 158 (150-450) th/mm3 MPV 8.0 (7.0-11.0) fL Neut % (Auto) 66.9 (16.0-70.0) % Lymph % (Auto) 24.2 (9.0-44.0) % [place] % (Auto) 7.0 (0.0-8.0) % Eos % (Auto) 1.6 (0.0-4.0) % Baso % (Auto) 0.3 (0.0-2.0) % Neut # (Auto) 4.9 (1.8-7.7) th/mm3 Lymph # (Auto) 1.8 (1.0-4.8) th/mm3 [place] # (Auto) 0.5 (0.0-0.9) th/mm3 Eos # (Auto) 0.1 (0.0-0.4) th/mm3 Baso # (Auto) 0.0 (0.0-0.2) th/mm3 WBC Differential . Differential Comment Auto diff final PT (9.8-11.6) sec INR Ratio APTT (23.4-31.7) sec Sodium 142 (136-145) meq/L Potassium 3.5 (3.5-5.1) meq/L Chloride 108 H (98-107) meq/L Carbon Dioxide 26.1 (21.0-32.0) meq/L Anion Gap 8 (5-15) meq/L BUN 21 H (7-18) mg/dL Creatinine 2.14 H (0.60-1.30) mg/dL Estimated GFR 36 L (>89) mL/min POC Glucose (68-110) mg/dl Random Glucose 111 H D (74-106) mg/dL Hemoglobin A1c 12.8 H (4.3-6.0) % Calcium 8.0 L (8.5-10.1) mg/dL Prot Corrected Calcium (8.5-10.1) mg/dL Magnesium (1.5-2.5) mg/dL Total Bilirubin 0.3 (0.2-1.0) mg/dL AST 11 L (15-37) U/L ALT 10 L (12-78) U/L Alkaline Phosphatase 71 (45-117) U/L Ammonia (11-32) mcmol/L Troponin I (0.02-0.05) ng/mL Total Protein 7.1 D (6.4-8.2) g/dL Albumin 2.2 L D (3.4-5.0) g/dL TSH (0.358-3.740) uIU/mL Urine Color (Yellw/Straw) Urine Clarity (Clear) Urine pH (5.0-8.5) Ur Specific [place] (1.002-1.035) Urine Protein (Neg-Trace) mg/dL Urine Glucose (UA) (Negative) mg/dL Urine Ketones (Negative) mg/dL Urine Occult Blood (Negative) Urine Nitrate (Negative) Urine Bilirubin (Negative) Urine Urobilinogen (Less than 2) mg/dL Ur Leukocyte Esterase (Negative) Urine RBC (0-3) /hpf Urine WBC (0-5) /hpf Hyaline Casts (0-3) /lpf Urine Mucus (Occasional) /lpf Micro UA Comment Ur Microscopic Review Urine Culture Comments Urine Opiates Screen (Neg) Ur Barbiturates Screen (Neg) Ur Amphetamines Screen (Neg) U Benzodiazepines Scrn (Neg) Urine Cocaine Screen (Neg) U Cannabinoids Screen (Neg) Serum Alcohol (0-5) mg/dL 09/17/18 09/17/18 09/17/18 Range/Units 11:12 18:03 20:41 WBC (4.0-11.0) th/mm3 RBC (4.50-5.90) mil/mm3 Hgb (13.0-17.0) gm/dL Hct (39.0-51.0) % MCV (80.0-100.0) fL MCH (27.0-34.0) pg MCHC (32.0-36.0) % RDW (11.6-17.2) % Plt Count (150-450) th/mm3 MPV (7.0-11.0) fL Neut % (Auto) (16.0-70.0) % Lymph % (Auto) (9.0-44.0) % [place] % (Auto) (0.0-8.0) % Eos % (Auto) (0.0-4.0) % Baso % (Auto) (0.0-2.0) % Neut # (Auto) (1.8-7.7) th/mm3 Lymph # (Auto) (1.0-4.8) th/mm3 [place] # (Auto) (0.0-0.9) th/mm3 Eos # (Auto) (0.0-0.4) th/mm3 Baso # (Auto) (0.0-0.2) th/mm3 WBC Differential Differential Comment PT (9.8-11.6) sec INR Ratio APTT (23.4-31.7) sec Sodium (136-145) meq/L Potassium (3.5-5.1) meq/L Chloride (98-107) meq/L Carbon Dioxide (21.0-32.0) meq/L Anion Gap (5-15) meq/L BUN (7-18) mg/dL Creatinine (0.60-1.30) mg/dL Estimated GFR (>89) mL/min POC Glucose 117 H 243 H 267 H (68-110) mg/dl Random Glucose (74-106) mg/dL Hemoglobin A1c (4.3-6.0) % Calcium (8.5-10.1) mg/dL Prot Corrected Calcium (8.5-10.1) mg/dL Magnesium (1.5-2.5) mg/dL Total Bilirubin (0.2-1.0) mg/dL AST (15-37) U/L ALT (12-78) U/L Alkaline Phosphatase (45-117) U/L Ammonia (11-32) mcmol/L Troponin I (0.02-0.05) ng/mL Total Protein (6.4-8.2) g/dL Albumin (3.4-5.0) g/dL TSH (0.358-3.740) uIU/mL Urine Color (Yellw/Straw) Urine Clarity (Clear) Urine pH (5.0-8.5) Ur Specific [place] (1.002-1.035) Urine Protein (Neg-Trace) mg/dL Urine Glucose (UA) (Negative) mg/dL Urine Ketones (Negative) mg/dL Urine Occult Blood (Negative) Urine Nitrate (Negative) Urine Bilirubin (Negative) Urine Urobilinogen (Less than 2) mg/dL Ur Leukocyte Esterase (Negative) Urine RBC (0-3) /hpf Urine WBC (0-5) /hpf Hyaline Casts (0-3) /lpf Urine Mucus (Occasional) /lpf Micro UA Comment Ur Microscopic Review Urine Culture Comments Urine Opiates Screen (Neg) Ur Barbiturates Screen (Neg) Ur Amphetamines Screen (Neg) U Benzodiazepines Scrn (Neg) Urine Cocaine Screen (Neg) U Cannabinoids Screen (Neg) Serum Alcohol (0-5) mg/dL 09/18/18 09/18/18 09/18/18 Range/Units 04:45 04:45 08:19 WBC 8.2 (4.0-11.0) th/mm3 RBC 3.00 L (4.50-5.90) mil/mm3 Hgb 9.2 L (13.0-17.0) gm/dL Hct 27.7 L (39.0-51.0) % MCV 92.1 (80.0-100.0) fL MCH 30.7 (27.0-34.0) pg MCHC 33.4 (32.0-36.0) % RDW 16.1 (11.6-17.2) % Plt Count 159 (150-450) th/mm3 MPV 7.9 (7.0-11.0) fL Neut % (Auto) 70.1 H (16.0-70.0) % Lymph % (Auto) 22.2 (9.0-44.0) % [place] % (Auto) 5.4 (0.0-8.0) % Eos % (Auto) 1.8 (0.0-4.0) % Baso % (Auto) 0.5 (0.0-2.0) % Neut # (Auto) 5.7 (1.8-7.7) th/mm3 Lymph # (Auto) 1.8 (1.0-4.8) th/mm3 [place] # (Auto) 0.4 (0.0-0.9) th/mm3 Eos # (Auto) 0.1 (0.0-0.4) th/mm3 Baso # (Auto) 0.0 (0.0-0.2) th/mm3 WBC Differential . Differential Comment Auto diff final PT (9.8-11.6) sec INR Ratio APTT (23.4-31.7) sec Sodium 142 (136-145) meq/L Potassium 3.8 (3.5-5.1) meq/L Chloride 111 H (98-107) meq/L Carbon Dioxide 23.0 (21.0-32.0) meq/L Anion Gap 8 (5-15) meq/L BUN 27 H (7-18) mg/dL Creatinine 2.34 H (0.60-1.30) mg/dL Estimated GFR 33 L (>89) mL/min POC Glucose 161 H (68-110) mg/dl Random Glucose 156 H (74-106) mg/dL Hemoglobin A1c (4.3-6.0) % Calcium 7.3 L* (8.5-10.1) mg/dL Prot Corrected Calcium 7.6 L (8.5-10.1) mg/dL Magnesium (1.5-2.5) mg/dL Total Bilirubin (0.2-1.0) mg/dL AST (15-37) U/L ALT (12-78) U/L Alkaline Phosphatase (45-117) U/L Ammonia (11-32) mcmol/L Troponin I (0.02-0.05) ng/mL Total Protein 6.6 (6.4-8.2) g/dL Albumin (3.4-5.0) g/dL TSH (0.358-3.740) uIU/mL Urine Color (Yellw/Straw) Urine Clarity (Clear) Urine pH (5.0-8.5) Ur Specific [place] (1.002-1.035) Urine Protein (Neg-Trace) mg/dL Urine Glucose (UA) (Negative) mg/dL Urine Ketones (Negative) mg/dL Urine Occult Blood (Negative) Urine Nitrate (Negative) Urine Bilirubin (Negative) Urine Urobilinogen (Less than 2) mg/dL Ur Leukocyte Esterase (Negative) Urine RBC (0-3) /hpf Urine WBC (0-5) /hpf Hyaline Casts (0-3) /lpf Urine Mucus (Occasional) /lpf Micro UA Comment Ur Microscopic Review Urine Culture Comments Urine Opiates Screen (Neg) Ur Barbiturates Screen (Neg) Ur Amphetamines Screen (Neg) U Benzodiazepines Scrn (Neg) Urine Cocaine Screen (Neg) U Cannabinoids Screen (Neg) Serum Alcohol (0-5) mg/dL Imaging Data Attestation: I personally reviewed and interpreted this imaging study as follows : Radiologist's impression: Chest X-Ray 09/16/18 21:58 CONCLUSION: 1. Left lower lobe consolidation. Head CT 09/16/18 21:58 CONCLUSION: 1. No acute findings in the brain. 2. Moderate ischemic central and cortical atrophy, stable from prior. . ECG Data Attestation: I personally reviewed and interpreted this ECG as follows: Interpretation: EKG shows sinus rhythm with no sign of acute ischemia and arrhythmia read by me and attending. Discharge Plan Discharge Disposition Patient Disposition: 30 Still Patient Discharge Condition Condition: Stable Discharge Order Discharge Orders: Discharge Order (Routine); Ordered 09/18/18 Ordered By: Lucy Dean Discharge Details Anticipated Discharge Date: 09/18/18 Diagnosis: Encephalopathy, Pneumonia Physicians Team ED Provider: Radha Leggett ED Midlevel Provider: Nick Lagunas Primary Care Provider: UNKNOWN, Attending Provider: Duc Cuevas Other Providers: [employer] Status ED Status: Left Department Discharge Information Discharge Date/Time: 09/17/18 01:15
--- NOTE | 2018-09-16 22:31 | XR ---
EXAM DATE: 09/16/2018 10:28 PM EST AGE/SEX: 78 years / Male INDICATIONS: Chest pain. CLINICAL DATA: This is the patient's initial encounter. Patient reports that signs and symptoms have been present for 1 day and indicates a pain score of Nonresponsive. MEDICAL/SURGICAL HISTORY: Non-responsive. Non-responsive. COMPARISON: [facility], XR CHEST PA AND LAT, 06/11/2016. . FINDINGS: Right subclavian catheter tip projects over the cavoatrial junction. The right lung is clear. There i s consolidation in the left lower lobe with loss of delineation of the medial one half the left hemid iaphragm. The heart is normal in size. Mild tortuosity descending thoracic aorta. CONCLUSION: 1. Left lower lobe consolidation. Electronically signed by: Erick Massey MD 09/16/2018 10:30 PM EST
[2018-09-16 22:33] LABS: INR 1.1 Ratio; Prothrombin Time 10.7 sec (9.8-11.6)
[2018-09-16 22:44] LABS: Bilirubin,Urine Negative (Negative); Clarity,Urine Clear (Clear); Color,Urine Yellow (Yellw/Straw); Glucose,Urine (UA) 500 or Greater mg/dL (Negative); Hyaline Casts,Urine 5 /lpf (0-3); Leukocyte Esterase,Urine Negative (Negative); Mucus,Urine Few /lpf (Occasional); Nitrite,Urine Negative (Negative); Specific Gravity,Urine 1.015 (1.002-1.035)
[2018-09-16 22:44] LABS: Alanine Aminotransferase 14 U/L (12-78); Albumin 2.9 g/dL (3.4-5.0); Anion Gap 8 meq/L (5-15); Aspartate Aminotransferase 11 U/L (15-37); Blood Urea Nitrogen 24 mg/dL (7-18); Calcium 8.3 mg/dL (8.5-10.1); Carbon Dioxide 26.7 meq/L (21.0-32.0); Chloride 101 meq/L (98-107); Glomerular Filtration Rate 29 mL/min (>89); Glucose,Random 425 mg/dL (74-106); Magnesium 1.7 mg/dL (1.5-2.5); Potassium 4.1 meq/L (3.5-5.1); Sodium 136 meq/L (136-145)
--- NOTE | 2018-09-16 22:48 | CT ---
EXAM DATE: 09/16/2018 10:43 PM EST AGE/SEX: 78 years / Male INDICATIONS: Confusion; elevated blood pressure and high blood sugar. CLINICAL DATA: This is the patient's initial encounter. Patient reports that signs and symptoms have been present for 1 day and indicates a pain score of 0/10. MEDICAL/SURGICAL HISTORY: Diabetes. Hypertension. Carcinoma, breast. Mastectomy, left. RADIATION DOSE: 56.21 CTDI (mGy) [place] [facility] [place]. . TECHNIQUE: CT of the head without contrast. Using automated exposure control and adjustment of the mA and/or kV according to patient size, radiation dose was kept as low as reasonably achievable to ob tain optimal diagnostic quality images. DICOM format image data is available electronically for revi ew and comparison. FINDINGS: Cerebrum: Moderate severity central and cortical atrophy is similar to prior examination in May.. Stable decreased attenuation in the periventricular white matter. No evidence of midline shift, m ass lesion, hemorrhage or acute infarction. No extraaxial fluid collections are seen. Posterior Fossa: The cerebellum and brainstem are intact. The 4th ventricle is midline. The cerebe llopontine angle is unremarkable. Incidental note of hardeep cisterna magna. Extracranial: The visualized portion of the orbits is intact. Skull: The calvaria is intact. No evidence of skull fracture. CONCLUSION: 1. No acute findings in the brain. 2. Moderate ischemic central and cortical atrophy, stable from prior. . Electronically signed by: Erick Massey MD 09/16/2018 10:46 PM EST
[2018-09-16 23:07] LABS: Alkaline Phosphatase 90 U/L (45-117); Total Protein 8.7 g/dL (6.4-8.2); Troponin I 0.03 ng/mL (0.02-0.05)
[2018-09-16] MEDS ORDERED: Azithromycin Inj 500 MG in Sodium Chlor 0.9% Inj 250 ML IV.SIG ONE (23:15)
[2018-09-16 23:18] LABS: Amphetamine Screen,Urine Neg (Neg); Barbiturate Screen,Urine Neg (Neg); Cannabinoid Screen,Urine Neg (Neg); Cocaine Screen,Urine Neg (Neg)
[2018-09-16 23:23] LABS: Opiate Screen,Urine Neg (Neg)
[2018-09-16] MEDS ORDERED: Dextrose 50% in Water 50 ML Vial IV.PUSH PRN (23:46)
[2018-09-16] MEDS ORDERED: Bisacodyl 10 MG Supp RECTAL PRN (23:46)
[2018-09-16] MEDS ORDERED: Acetaminophen 325 MG Tablet PO PRN (23:46)
[2018-09-16] MEDS: Sod Chloride 0.9% Inj 1,000 ML IV.CONT SCH (23:58)
--- NOTE | 2018-09-17 01:16 | P.HPIM ---
History of Present Illness Primary Care Physician: UNKNOWN History of Present Illness: This is a 78-year-old male with a PMH of HTN, Hyperlipidemia, DM, Breast CA s/p Mastectomy and CKD who was brought to the ER by EMS for AMS. Pt very poor historian, unable to provide any history but tells me "I feel better". Pt's niece at bedside, states her twin has been pt's dementia program director, however she is currently having Psychiatric issues and is unable to care for pt. Per EMS, pt noted to be increasingly confused w/ elevated BS 400's. On arrival, BP 173/107 , HR 98, O2 sat 98% on RA, Afebrile. CBC essentially unremarkable. INR 1.1. Creatinine 2.62, previously 2.52 on 05/23/2018. Troponin 0 0.03. UA negative for UTI. Urine Drug Screen negative. Alcohol negative. CXR with left lower lobe consolidation. CT Head with no acute findings. S/p Rocephin/Zithro in ER - Diagnosis (1) Encephalopathy (2) PNA (pneumonia) (3) DM (diabetes mellitus) Review of Systems PAST FAMILY HISTORY: Reviewed. No h/o DM or CAD All other systems reviewed negative except as stated in HPI PMFSH - History History Provided By: Patient - Medical History Medical History: Medical History (Last Reviewed 09/16/18 @ 22:18 by JUNIOR Grimaldo) Diabetes HTN (hypertension) - Surgical History Surgical History: Surgical History (Last Reviewed 09/16/18 @ 22:18 by JUNIOR Grimaldo) H/O left mastectomy History of hip surgery - Tobacco History Second Hand Smoke Exposure: No Smoking Status: Cognitive impairment - Alcohol History How Often Do You Have a Drink Containing Alcohol: Unable to Obtain - Substance Use History Substance History: No History of Abuse - Travel History Recent Travel Out of the Country Within the Last 8 Weeks: No - Immunization History Tetanus Immunization: Unable to Assess Medications and Allergies Active Medications: Active Medications Acetaminophen (Tylenol) 650 mg PO Q4H PRN PRN Reason: Temp > 100.4 Al Hydroxide/Mg Hydroxide (Milk Of Magnesia Liq) 30 ml PO Q12H PRN PRN Reason: Mild Constipation Bisacodyl (Dulcolax Supp) 10 mg RECTAL DAILY PRN PRN Reason: SEVERE CONSITIPATION Dextrose (D50w Vial) 50 ml IV.PUSH UNSCH PRN PRN Reason: PER HYPOGLYCEMIA PROTOCOL Glucagon (Glucagon Inj) 1 mg OTHER PRN PRN PRN Reason: for Hypoglycemia Protocol Azithromycin 500 mg/ Sodium (Chloride) 250 mls @ 250 mls/hr IV.SIG Q24H JUDY Ceftriaxone Sodium 1,000 mg/ (Sodium Chloride) 100 mls @ 200 mls/hr IV.SIG Q24H JUDY Sodium Chloride (Ns Inj) 1,000 mls @ 100 mls/hr IV.CONT .Q10H JUDY Last Admin: 09/16/18 23:58 Dose: 100 mls/hr Insulin Aspart (Novolog Insulin Correctional Sugar Inj) 0 unit SQ ACHS JUDY; Protocol Lactulose (Lactulose Liq) 30 ml PO DAILY PRN PRN Reason: SEVERE CONSITIPATION Ondansetron HCl (Zofran Inj) 4 mg IV.PUSH Q6H PRN PRN Reason: NAUSEA OR VOMITING Senna/Docusate Sodium (Charisse-Colace) 1 tab PO BID [facility] Sennosides (Senokot) 17.2 mg PO Q12H PRN PRN Reason: Moderate Constipation Allergies Allergy/AdvReac Type Severity Reaction Status Date / Time No Known Allergies Allergy Verified 09/16/18 21:57 Home Medications Medication Instructions Recorded Confirmed Type anastrozole [Arimidex] 1 mg PO DAILY 05/22/18 09/16/18 History dorzolamide-timolol 1 drop LEFT EYE BID 05/22/18 09/16/18 History losartan 50 mg PO DAILY 05/22/18 09/16/18 History nifedipine 60 mg PO DAILY 05/22/18 09/16/18 History rivaroxaban [Xarelto] 15 mg PO QPM 05/22/18 09/16/18 History rosuvastatin [Crestor] 10 mg PO DAILY 05/22/18 09/16/18 History Exam Vital signs: Vital Signs 09/16/18 21:50 09/16/18 21:56 Temperature 98.7 F Pulse Rate 98 H 118 H Respiratory Rate 22 Blood Pressure 173/107 H Pulse Oximetry 98 97 Intake & Output 09/16/18 09/16/18 09/17/18 06:59 18:59 06:59 Intake Total 100 / 100 Balance 100 / 100 Weight 99.79 kg Intake: IV 100 / 100 Rocephin Inj 1,000 MG In NS Inj 100 / 100 100 ML @ 200 mls/hr IV.SIG ONCE ONE Rx#:[id number] Narrative: PE: GENERAL: Very pleasant elderly black male in no acute distress, confused. SKIN: Focused skin assessment warm and dry. HEENT: PERRLA, EOMI. No scleral icterus or conjunctival pallor. No lid lag or facial droop. CARDIOVASCULAR: Regular rate and rhythm. No obvious murmurs to auscultation. No chest tenderness to palpation. RESPIRATORY: No obvious rhonchi or wheezing. Clear to auscultation. Breath sounds equal bilaterally. GASTROINTESTINAL: Abdomen soft, non-tender, nondistended. BS normal. MUSCULOSKELETAL: Extremities without clubbing, cyanosis, or edema. No obvious deformities. NEUROLOGICAL: Awake, alert and oriented to person, knows he's at [place], thinks it's "1900's". No focal neurologic deficits. Moving both upper and lower extremities spontaneously. PSYCHIATRIC: Appropriate mood and affect. Insight and judgment normal. Results - Labs CBC & Chem 7: 09/16/18 22:00 09/16/18 22:00 Labs: Short CBC 09/16/18 Range/Units 22:00 WBC 10.6 (4.0-11.0) th/mm3 Hgb 11.5 L (13.0-17.0) gm/dL Hct 34.4 L (39.0-51.0) % Plt Count 199 (150-450) th/mm3 BMP 09/16/18 22:00 Sodium 136 Potassium 4.1 Chloride 101 Carbon Dioxide 26.7 BUN 24 H Creatinine 2.62 H Calcium 8.3 L Cardiac Enzymes 09/16/18 Range/Units 22:00 Troponin I 0.03 (0.02-0.05) ng/mL Liver Function 09/16/18 Range/Units 22:00 Total Bilirubin 0.3 (0.2-1.0) mg/dL AST 11 L (15-37) U/L ALT 14 (12-78) U/L Alkaline Phosphatase 90 (45-117) U/L Albumin 2.9 L (3.4-5.0) g/dL Urine 09/16/18 Range/Units 22:17 Urine Color Yellow (Yellw/Straw) Urine Clarity Clear (Clear) Urine pH 5.0 (5.0-8.5) Ur Specific [place] 1.015 (1.002-1.035) Urine Protein 100 H (Neg-Trace) mg/dL Urine Glucose (UA) 500 or greater (Negative) mg/dL - Imaging Impressions Chest X-Ray 09/16/18 21:58 CONCLUSION: 1. Left lower lobe consolidation. Head CT 09/16/18 21:58 CONCLUSION: 1. No acute findings in the brain. 2. Moderate ischemic central and cortical atrophy, stable from prior. . Caprini VTE Risk Assessment Caprini VTE Risk Assessment: No/Low Risk (score <= 1) Caprini Risk Assessment Model: Point Value = 1 Point Value = 2 Point Value = 3 Point Value = 5 Age 41-60 Minor surgery BMI > 25 kg/m2 Swollen legs Varicose veins or History of unexplained or recurrent spontaneous Oral contraceptives or hormone replacement Sepsis (< 1 month) Serious lung disease, including pneumonia (< 1 month) Abnormal pulmonary function Acute myocardial infarction Congestive heart failure (< 1 month) History of inflammatory bowel disease Medical patient at bed rest Age 61-74 Arthroscopic surgery Major open surgery (> 45 min) Laparoscopic surgery (> 45 min) Malignancy Confined to bed (> 72 hours) Immobilizing plaster cast Central venous access Age >= 75 History of VTE Family history of VTE Factor V Leiden Prothrombin [id number] Lupus anticoagulant Anticardiolipin antibodies Elevated serum homocysteine Heparin-induced thrombocytopenia Other congenital or acquired thrombophilia Stroke (< 1 month) Elective arthroplasty Hip, pelvis, or leg fracture Acute spinal cord injury (< 1 month) Prophylaxis Regimen: Total Risk Factor Score Risk Level Prophylaxis Regimen 0-1 Low Early ambulation 2 Moderate Order ONE of the following: *Sequential Compression Device (SCD) *Heparin 5000 units SQ BID 3-4 Higher Order ONE of the following medications: *Heparin 5000 units SQ TID *Enoxaparin/Lovenox 40 mg SQ daily (WT < 150 kg, CrCl > 30 mL/min) *Enoxaparin/Lovenox 30 mg SQ daily (WT < 150 kg, CrCl > 10-29 mL/min) *Enoxaparin/Lovenox 30 mg SQ BID (WT < 150 kg, CrCl > 30 mL/min) AND/OR *Sequential Compression Device (SCD) 5 or more Highest Order ONE of the following medications: *Heparin 5000 units SQ TID (Preferred with Epidurals) *Enoxaparin/Lovenox 40 mg SQ daily (WT < 150 kg, CrCl > 30 mL/min) *Enoxaparin/Lovenox 30 mg SQ daily (WT < 150 kg, CrCl > 10-29 mL/min) *Enoxaparin/Lovenox 30 mg SQ BID (WT < 150 kg, CrCl > 30 mL/min) AND *Sequential Compression Device (SCD) Assessment and Plan - Assessment (1) Encephalopathy Code(s): G93.40 - Encephalopathy, unspecified Status: Acute (2) PNA (pneumonia) Code(s): J18.9 - Pneumonia, unspecified organism Status: Acute (3) DM (diabetes mellitus) Code(s): E11.9 - Type 2 diabetes mellitus without complications Status: Acute - Plan A/P: 1. Encephalopathy: likely secondary to underlying dementia and acute infection , currently awake/alert and oriented to person and place. Niece reports her twin is dementia program director, however she has been unable to care for pt lately. Will consult Case Management for assistance w/ [facility] vs Rehab. 2. PNA: CXR w/ LLL PNA, images reviewed, s/p Rocephin/Zithro in ER, will continue w/ IV Abx, DuoNeb prn. 3. DM: Uncontrolled. BS >400's, start on sliding scale w/ Accu-Cheks 4. DVT Prophylaxis: resume Xarelto 5. Social work for d/c planning as needed 6. Case discussed w/ ER physician at length, labs/records/imaging reviewed by me.
[2018-09-17 09:27] LABS: Baso % (Auto) 0.3 % (0.0-2.0); Eos # (Auto) 0.1 th/mm3 (0.0-0.4); Eos % (Auto) 1.6 % (0.0-4.0); Hematocrit 30.3 % (39.0-51.0); Hemoglobin 9.7 gm/dL (13.0-17.0); Lymph # (Auto) 1.8 th/mm3 (1.0-4.8); Lymph % (Auto) 24.2 % (9.0-44.0); Mean Corpuscular HGB Conc 32.2 % (32.0-36.0); Mean Corpuscular Hemoglobin 30.5 pg (27.0-34.0); Mean Corpuscular Volume 94.7 fL (80.0-100.0); Mono # (Auto) 0.5 th/mm3 (0.0-0.9); Neut # (Auto) 4.9 th/mm3 (1.8-7.7); Neut % (Auto) 66.9 % (16.0-70.0); Platelet Count 158 th/mm3 (150-450); Red Cell Distribution Width 16.2 % (11.6-17.2); White Blood Count 7.3 th/mm3 (4.0-11.0)
[2018-09-17 09:45] LABS: Alanine Aminotransferase 10 U/L (12-78); Albumin 2.2 g/dL (3.4-5.0); Alkaline Phosphatase 71 U/L (45-117); Anion Gap 8 meq/L (5-15); Aspartate Aminotransferase 11 U/L (15-37); Blood Urea Nitrogen 21 mg/dL (7-18); Carbon Dioxide 26.1 meq/L (21.0-32.0); Chloride 108 meq/L (98-107); Glomerular Filtration Rate 36 mL/min (>89); Glucose,Random 111 mg/dL (74-106); Potassium 3.5 meq/L (3.5-5.1); Sodium 142 meq/L (136-145); Total Protein 7.1 g/dL (6.4-8.2)
[2018-09-17] MEDS: Insulin NovoLOG Aspart Correctional Sugar Inj SQ SCH ×4 (11:13→20:49)
[2018-09-17] MEDS: Senna/Docusate Sodium 8.6/50 MG Tablet PO SCH ×2 (11:20→20:48)
[2018-09-17] MEDS: Anastrozole 1 MG Tablet PO SCH (11:20)
[2018-09-17] MEDS: Metoprolol Tartrate 25 MG Tablet PO SCH ×2 (11:20→20:49)
[2018-09-17] MEDS: hydrALAZINE 25 MG Tablet PO SCH ×2 (11:20→20:48)
[2018-09-17] MEDS: Dorzolamide-Timolol 2/0.5% Opth Drops 10 ML Bottle LEFT EYE SCH ×2 (11:20→20:48)
--- NOTE | 2018-09-17 11:41 | P.PNIM ---
Subjective Interval history: Follow up AMS and PNA Patient awake resting in bed reports feeling much better than yesterday Patient able to tell me his name, that he is in [facility], and the month correctly. Physical Exam Vital signs: Last Vital Signs Temp 98.0 F 09/17/18 08:00 Pulse 72 09/17/18 08:00 Resp 16 09/17/18 08:00 BP 148/79 H 09/17/18 08:00 Pulse Ox 99 09/17/18 08:00 Narrative: GENERAL: Very pleasant elderly black male in no acute distress SKIN: Focused skin assessment warm and dry. HEENT: PERRLA, EOMI. No scleral icterus or conjunctival pallor. No lid lag or facial droop. CARDIOVASCULAR: Regular rate and rhythm. RESPIRATORY: diminished LLL GASTROINTESTINAL: Abdomen soft, non-tender, nondistended. BS normal. MUSCULOSKELETAL: Extremities without clubbing, cyanosis, or edema. No obvious deformities. NEUROLOGICAL: Awake, alert and oriented to person, able to tell me that he is in [facility] and that it is September, to have periods of confusion. No focal neurologic deficits. Moving both upper and lower extremities spontaneously. PSYCHIATRIC: Appropriate mood and affect. Insight and judgment normal. Results Labs CBC & Chem 7: 09/17/18 08:30 09/17/18 08:30 Assessment and Plan Assessment (1) Encephalopathy: Code(s): G93.40 - Encephalopathy, unspecified Status: Acute (2) PNA (pneumonia): Code(s): J18.9 - Pneumonia, unspecified organism Status: Acute (3) DM (diabetes mellitus): Code(s): E11.9 - Type 2 diabetes mellitus without complications Status: Acute Plan 1. Encephalopathy- resolving: likely secondary to underlying dementia and acute infection/hyperglycemia, currently awake/alert and oriented to person, place and month. Niece reports her twin is thermocouple tester, however she has been unable to care for pt lately. Will consult Case Management for assistance 2. PNA: CXR w/ LLL PNA,, s/p Rocephin/Zithro in ER, will continue w/ IV Rocephin and PO azithromycin, DuoNeb prn. 3. DM: Uncontrolled. BS >400's, start on sliding scale w/ Accu-Cheks. Improved - patient reports his niece gave him ice cream last night 4. DVT Prophylaxis: resume Xarelto Case Management trying to contact family Plan to DC home with C if there is reliable family available to care for the patient Discussed with patient, nurse, case management and supervising physician Dr. 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
[2018-09-17 13:44] LABS: Hemoglobin A1c 12.8 % (4.3-6.0)
[2018-09-17] MEDS ORDERED: Rivaroxaban 15 MG Tablet PO SCH (18:00)
[2018-09-17] MEDS: Sod Chloride 0.9% Inj 1,000 ML IV.CONT SCH ×2 (18:10→19:27)
[2018-09-17] MEDS: Azithromycin 250 MG Tablet PO SCH (19:26)
[2018-09-17] MEDS ORDERED: Azithromycin Inj 500 MG in Sodium Chlor 0.9% Inj 250 ML IV.SIG SCH (21:00)
[2018-09-18] MEDS: Sod Chloride 0.9% Inj 1,000 ML IV.CONT SCH (04:45)
[2018-09-18 05:05] LABS: Baso % (Auto) 0.5 % (0.0-2.0); Eos # (Auto) 0.1 th/mm3 (0.0-0.4); Eos % (Auto) 1.8 % (0.0-4.0); Hematocrit 27.7 % (39.0-51.0); Hemoglobin 9.2 gm/dL (13.0-17.0); Lymph # (Auto) 1.8 th/mm3 (1.0-4.8); Lymph % (Auto) 22.2 % (9.0-44.0); Mean Corpuscular HGB Conc 33.4 % (32.0-36.0); Mean Corpuscular Hemoglobin 30.7 pg (27.0-34.0); Mean Corpuscular Volume 92.1 fL (80.0-100.0); Mean Platelet Volume 7.9 fL (7.0-11.0); Mono # (Auto) 0.4 th/mm3 (0.0-0.9); Mono % (Auto) 5.4 % (0.0-8.0); Neut # (Auto) 5.7 th/mm3 (1.8-7.7); Neut % (Auto) 70.1 % (16.0-70.0); Platelet Count 159 th/mm3 (150-450); Red Cell Distribution Width 16.1 % (11.6-17.2); White Blood Count 8.2 th/mm3 (4.0-11.0)
[2018-09-18 05:52] LABS: Calcium 7.3 mg/dL (8.5-10.1); Potassium 3.8 meq/L (3.5-5.1)
[2018-09-18 06:11] LABS: Total Protein 6.6 g/dL (6.4-8.2)
[2018-09-18 07:33] VITALS: BP 144/71; PULSE 75; RESP 20; TEMP 98.2; O2SAT 98
[2018-09-18] MEDS: Metoprolol Tartrate 25 MG Tablet PO SCH (08:20)
[2018-09-18] MEDS: hydrALAZINE 25 MG Tablet PO SCH (08:20)
[2018-09-18] MEDS: Senna/Docusate Sodium 8.6/50 MG Tablet PO SCH (08:20)
[2018-09-18] MEDS: Anastrozole 1 MG Tablet PO SCH (08:20)
[2018-09-18] MEDS: Azithromycin 250 MG Tablet PO SCH (08:20)
[2018-09-18] MEDS: Dorzolamide-Timolol 2/0.5% Opth Drops 10 ML Bottle LEFT EYE SCH (08:21)
[2018-09-18] MEDS: Insulin NovoLOG Aspart Correctional Sugar Inj SQ SCH (09:31)
--- NOTE | 2018-09-18 09:35 | P.PNIM ---
Subjective Interval history: Interval history: Follow up AMS and PNA Patient awake reports feeling much better offers no new concerns/complaints Patient A&O Physical Exam Vital signs: Last Vital Signs Temp 98.2 F 09/18/18 07:30 Pulse 75 09/18/18 07:30 Resp 20 09/18/18 07:30 BP 144/71 H 09/18/18 07:30 Pulse Ox 98 09/18/18 07:30 Narrative: GENERAL: Very pleasant elderly male in no acute distress SKIN: Focused skin assessment warm and dry. HEENT: PERRLA, EOMI. No scleral icterus or conjunctival pallor. No lid lag or facial droop. CARDIOVASCULAR: Regular rate and rhythm. RESPIRATORY: clear through out GASTROINTESTINAL: Abdomen soft, non-tender, nondistended. BS normal. MUSCULOSKELETAL: Extremities without clubbing, cyanosis, or edema. No obvious deformities. NEUROLOGICAL: Awake, alert and oriented to person, able to tell me that he is in [facility] and that it is September. No focal neurologic deficits. Moving both upper and lower extremities spontaneously. PSYCHIATRIC: Appropriate mood and affect. Insight and judgment normal. Results Labs CBC & Chem 7: 09/18/18 04:45 09/18/18 04:45 Assessment and Plan Assessment (1) Encephalopathy: Code(s): G93.40 - Encephalopathy, unspecified Status: Acute (2) PNA (pneumonia): Code(s): J18.9 - Pneumonia, unspecified organism Status: Acute (3) DM (diabetes mellitus): Code(s): E11.9 - Type 2 diabetes mellitus without complications Status: Acute Plan 1. Encephalopathy- resolving: likely secondary to underlying dementia and acute infection/hyperglycemia, currently awake/alert and oriented to person, place and month. Niece reports her twin is lip reading teacher, however she has been unable to care for pt lately. Will consult Case Management for assistance 2. PNA: CXR w/ LLL PNA,, s/p Rocephin/Zithro in ER, will continue w/ IV Rocephin and PO azithromycin, DuoNeb prn. 3. DM: Uncontrolled. BS >400's, start on sliding scale w/ Accu-Cheks. Improved - patient reports his niece gave him ice cream last night 4. DVT Prophylaxis: resume Pham Attempted to call niece's who care for patient Theresa Cesar and Layo Cesar and , there was no answer Case Management trying to contact family Plan to DC home with C if there is reliable family available to care for the patient Discussed with patient, nurse, case management and supervising physician Dr. Cuevas Progress Note: Quality VTE Deep Vein Thrombosis/Pulmonary Embolism Present on Admission: No _ (1) PNA (pneumonia) Qualifiers: Pneumonia type: Aspiration pneumonia type: Laterality: Lung location: (2) DM (diabetes mellitus) Qualifiers: Diabetes mellitus type: Diabetes mellitus terminal superintendent insulin use: Diabetes mellitus complication status: Diabetes mellitus complication detail: Diabetic retinopathy severity: Proliferative retinopathy type: Diabetes mellitus macular edema: Laterality: Chronic kidney disease stage:
--- NOTE | 2018-09-18 10:13 | P.DCO ---
Diagnosis (1) PNA (pneumonia): Status: Acute (2) DM (diabetes mellitus): Status: Acute Physical Therapy Order: Evaluate and treat Home Health Nursing Order: Medical education, Signs/symptoms of disease process and Nursing assessment with vital signs Bait Tier Order: To evaluate: Living conditions/environment and Support services Order: To provide: Long range planning and Community services Case Management Consult Case Management Consult-Home Health: Yes I have seen patient Arie Macedo on 09/18/18. My clinical findings support the need for the requested home health care services because: Limited ability to care for self I certify that my clinical findings support that this patient is homebound because: Unsafe to leave home unassisted _ (1) PNA (pneumonia) Qualifiers: Pneumonia type: Aspiration pneumonia type: Laterality: Lung location: (2) DM (diabetes mellitus) Qualifiers: Diabetes mellitus type: Diabetes mellitus halfway insulin use: Diabetes mellitus complication status: Diabetes mellitus complication detail: Diabetic retinopathy severity: Proliferative retinopathy type: Diabetes mellitus macular edema: Laterality: Chronic kidney disease stage:
== END 2018-09-18 13:23 | disposition home health service (06) ==
LOC: NEPE 21:45 → NEDA 21:45 → NEPGCP 09-17 00:59
PROVIDERS: ADMIT Internal Medicine; ATTEND Internal Medicine
DX: Z79.01 Long term (current) use of anticoagulants; J69.0 Pneumonitis due to inhalation of food and vomit; Z79.811 Long term (current) use of aromatase inhibitors; G93.40 Encephalopathy, unspecified; E78.5 Hyperlipidemia, unspecified; N18.9 Chronic kidney disease, unspecified; Z85.3 Personal history of malignant neoplasm of breast; Z79.4 Long term (current) use of insulin; E11.65 Type 2 diabetes mellitus with hyperglycemia; I12.9 Hypertensive chronic kidney disease with stage 1 through stage 4 chronic kidney disease, or unspecified chronic kidney disease; Z79.899 Other long term (current) drug therapy; E11.22 Type 2 diabetes mellitus with diabetic chronic kidney disease; E11.3599 Type 2 diabetes mellitus with proliferative diabetic retinopathy without macular edema, unspecified eye